=== PATIENT | male | born 1940 | race Caucasian/White ===

== ENCOUNTER 2017-07-06 15:27 | Emergency (ER) | payer OTHER ==
--- NOTE | 2017-07-06 16:16 | EDPHYS ---
Physician Documentation [facility] Name: Dameon Olivia Age: 76 yrs Sex: Male : 1940 Arrival Date: 07/06/2017 Time: 15:30 Bed 19 Private MD: ED Physician Cb Raymond HPI: 07/06 16:11 This 76 yrs old Male presents to ER via Ambulatory with complaints of fco POSSIBLE HERNIA. 16:11 The patient presents with abdominal pain. Onset: The symptoms/episode began/occurred 2 fco day(s) ago, 2 week(s) ago. The symptoms do not radiate. Associated signs and symptoms: none. The symptoms are described as crampy. Modifying factors: The symptoms are alleviated by remaining still, the symptoms are aggravated by movement. Severity of pain: At its worst the pain was mild in the emergency department the pain is unchanged. The patient has experienced similar episodes in the past, several times. Historical: - Allergies: 15:39 No Known Allergies; aj - Home Meds: 15:39 pantoprazole oral oral [Active]; atorvastatin 40 mg oral tab 1 tab once daily [Active]; aj Pradaxa 150 mg oral cap 1 cap 2 times per day [Active]; - PMHx: 15:39 Hypertension; Atrial Fib; aj - PSHx: 15:39 None; aj - Immunization history:: Adult Immunizations up to date. - Social history:: Smoking status: Patient/guardian denies using tobacco. - Family history:: not pertinent. ROS: 16:11 Constitutional: Negative for fever, chills, and weight loss, Eyes: Negative for injury, fco pain, redness, and discharge, ENT: Negative for injury, pain, and discharge, Neck: Negative for injury, pain, and swelling, Cardiovascular: Negative for chest pain, palpitations, and edema, Respiratory: Negative for shortness of breath, cough, wheezing, and pleuritic chest pain, Back: Negative for injury and pain, : Negative for injury, bleeding, discharge, and swelling, MS/Extremity: Negative for injury and deformity, Skin: Negative for injury, rash, and discoloration, Neuro: Negative for headache, weakness, numbness, tingling, and seizure, Psych: Negative for depression, anxiety, suicide ideation, homicidal ideation, and hallucinations, Allergy/Immunology: Negative for hives, rash, and allergies, Endocrine: Negative for neck swelling, polydipsia, polyuria, polyphagia, and marked weight changes, Hematologic/Lymphatic: Negative for swollen nodes, abnormal bleeding, and unusual bruising. 16:11 Abdomen/GI: Positive for abdominal pain, of the suprapubic area, right lower quadrant and left lower quadrant. Exam: 16:11 Constitutional: This is a well developed, well nourished patient who is awake, alert, fco and in no acute distress. Head/Face: Normocephalic, atraumatic. Eyes: Pupils equal round and reactive to light, extra-ocular motions intact. Lids and lashes normal. Conjunctiva and sclera are non-icteric and not injected. Cornea within normal limits. Periorbital areas with no swelling, redness, or edema. ENT: Nares patent. No nasal discharge, no septal abnormalities noted. Tympanic membranes are normal and external auditory canals are clear. Oropharynx with no redness, swelling, or masses, exudates, or evidence of obstruction, uvula midline. Mucous membranes moist. Neck: Trachea midline, no thyromegaly or masses palpated, and no cervical lymphadenopathy. Supple, full range of motion without nuchal rigidity, or vertebral point tenderness. No Meningismus. Chest/axilla: Normal chest wall appearance and motion. Nontender with no deformity. No lesions are appreciated. Cardiovascular: Regular rate and rhythm with a normal S1 and S2. No gallops, murmurs, or rubs. Normal PMI, no JVD. No pulse deficits. Respiratory: Lungs have equal breath sounds bilaterally, clear to auscultation and percussion. No rales, rhonchi or wheezes noted. No increased work of breathing, no retractions or nasal flaring. Back: No spinal tenderness. No costovertebral tenderness. Full range of motion. Male : Normal genitalia with no discharge or lesions. Skin: Warm, dry with normal turgor. Normal color with no rashes, no lesions, and no evidence of cellulitis. MS/ Extremity: Pulses equal, no cyanosis. Neurovascular intact. Full, normal range of motion. Neuro: Awake and alert, GCS 15, oriented to person, place, time, and situation. Cranial nerves II-XII grossly intact. Motor strength 5/5 in all extremities. Sensory grossly intact. Cerebellar exam normal. Normal gait. Psych: Awake, alert, with orientation to person, place and time. Behavior, mood, and affect are within normal limits. 16:11 Abdomen/GI: Inspection: abdomen appears normal, Bowel sounds: normal, Palpation: mild abdominal tenderness, in the suprapubic area, right lower quadrant and left lower quadrant. Vital Signs: 15:39 BP 149 / 90; Pulse 64; Resp 20; Temp 97.8; Pulse Ox 96% on R/A; Weight 97.98 kg; Height aj 6 ft. 0 in. (182.88 cm); Pain 9/10; 16:30 BP 144 / 87; Pulse 63; Resp 18; Pulse Ox 99% on R/A; rb1 15:39 Body Mass Index 29.29 (97.98 kg, 182.88 cm) MDM: 15:43 Patient medically screened. [facility] 16:11 Data reviewed: vital signs, nurses notes, lab test result(s), radiologic studies, CT [facility] scan. 07/06 16:06 Order name: Urine Culture [facility] 07/06 16:07 Order name: Urine Culture [facility] 07/06 16:06 Order name: Urine Dipstick-Ancillary (obtain specimen); Complete Time: 16:55 [facility] Administered Medications: No medications were administered Disposition: 07/06/17 16:16 Discharged to Home. Impression: Bilateral inguinal hernia, without obstruction or gangrene, not specified as recurrent, Obesity, unspecified, Atrial fibrillation and flutter. - Condition is Stable. - Discharge Instructions: Atrial Fibrillation, Hernia, Obesity, Inguinal Hernia, Adult, Atrial Fibrillation, [id number]. - Medication Reconciliation Form, Thank You Letter, Antibiotic Education, Prescription Opioid Use form. - Follow up: Quan Anderson MD; When: 2 - 3 days; Reason: Recheck today's complaints, Continuance of care, Re-evaluation by your physician. - Problem is new. - Symptoms have improved. Signatures: Dispatcher [employer] Tiffanie Ugarte, Cb Reza RN, MD MD cha Barber, Rebecca RN RN rb1 Corrections: (The following items were deleted from the chart) 16:46 16:16 07/06/2017 16:16 Discharged to Home. Impression: Bilateral inguinal hernia, rb1 without obstruction or gangrene, not specified as recurrent; Obesity, unspecified; Atrial fibrillation and flutter. Condition is Stable. Forms are Medication Reconciliation Form, Thank You Letter, Antibiotic Education, Prescription Opioid Use. Follow up: Dr. Quan Anderson; When: 2 - 3 days; Reason: Recheck today's complaints, Continuance of care, Re-evaluation by your physician. Problem is new. Symptoms have improved. fco
--- NOTE | 2017-07-06 16:16 | ER ---
Nurse's Notes [facility] Name: Dameon Olivia Age: 76 yrs Sex: Male : 1940 Arrival Date: 07/06/2017 Time: 15:30 Bed 19 Private MD: Diagnosis: Bilateral inguinal hernia, without obstruction or gangrene, not specified as recurrent;Obesity, unspecified;Atrial fibrillation and flutter Presentation: 07/06 15:33 Presenting complaint: Patient states: Right inguinal hernia that started 6 weeks ago. aj Patient reports he was sent by Dr Rosales to be evaluated. Patient seen by PCP for this complaint and had CT, found 2 small hernias. Transition of care: patient was not received from another setting of care. Onset of symptoms was May 28, 2017. Initial Sepsis Screen: Does the patient meet any 2 criteria? No. Patient's initial sepsis screen is negative. Does the patient have a suspected source of infection? No. Patient's initial sepsis screen is negative. Care prior to arrival: None. 15:33 Method Of Arrival: Ambulatory 15:33 Acuity: DEYVI 3 aj Triage Assessment: 15:39 General: Appears in no apparent distress. uncomfortable, Behavior is calm, cooperative, aj appropriate for age. Pain: Complains of pain in right femoral area Pain currently is 4 out of 10 on a pain scale. at worst was 10 out of 10 on a pain scale. Neuro: Level of Consciousness is awake, alert, obeys commands, Oriented to person, place, time, situation, Appropriate for age. Respiratory: Airway is patent Respiratory effort is even, unlabored, Respiratory pattern is regular, symmetrical. : Reports pain in right lower groin. Derm: Skin is intact, is healthy with good turgor, Skin is pink, warm \T\ dry. normal. Historical: - Allergies: 15:39 No Known Allergies; aj - Home Meds: 15:39 pantoprazole oral oral [Active]; atorvastatin 40 mg oral tab 1 tab once daily [Active]; aj Pradaxa 150 mg oral cap 1 cap 2 times per day [Active]; - PMHx: 15:39 Hypertension; Atrial Fib; aj - PSHx: 15:39 None; aj - Immunization history:: Adult Immunizations up to date. - Social history:: Smoking status: Patient/guardian denies using tobacco. - Family history:: not pertinent. Screenin:45 Abuse screen: Denies threats or abuse. Nutritional screening: No deficits noted. rb1 Tuberculosis screening: No symptoms or risk factors identified. Fall Risk None identified. Assessment: 15:45 General: Appears in no apparent distress. comfortable, Behavior is calm, cooperative. rb1 Pain: Complains of pain in right femoral area Pain currently is 10 out of 10 on a pain scale. Pain began x 6 weeks. Neuro: Level of Consciousness is awake, alert, obeys commands, Oriented to person, place, time, situation. Cardiovascular: Capillary refill < 3 seconds is brisk in bilateral fingers. Respiratory: Airway is patent Respiratory effort is even, unlabored, Respiratory pattern is regular, symmetrical. GI: No signs and/or symptoms were reported involving the gastrointestinal system. : No signs and/or symptoms were reported regarding the genitourinary system. Derm: Skin is pink, warm \T\ dry. Musculoskeletal: Range of motion: intact in all extremities. 16:30 Reassessment: Patient appears in no apparent distress at this time. No changes from rb1 previously documented assessment. discharge pending due to urine specimen collection. Vital Signs: 15:39 BP 149 / 90; Pulse 64; Resp 20; Temp 97.8; Pulse Ox 96% on R/A; Weight 97.98 kg; Height aj 6 ft. 0 in. (182.88 cm); Pain 9/10; 16:30 BP 144 / 87; Pulse 63; Resp 18; Pulse Ox 99% on R/A; rb1 15:39 Body Mass Index 29.29 (97.98 kg, 182.88 cm) ED Course: 15:30 Patient arrived in ED. sb2 15:36 Triage completed. aj 15:39 Arm band placed on left wrist. Patient placed in an exam room. aj 15:43 Cb Raymond MD is Attending Physician. fco 15:45 Patient has correct armband on for positive identification. Bed in low position. Call rb1 light in reach. Side rails up X 1. Pulse ox on. NIBP on. 15:47 Hazel Barbosa, SRIRAM is Primary Nurse. rb1 16:14 Quan Anderson MD is Referral Physician. fco 16:46 No provider procedures requiring assistance completed. Patient did not have IV access rb1 during this emergency room visit. 16:55 Urine Culture Sent. rb1 Administered Medications: No medications were administered Outcome: 16:16 Discharge ordered by . fco 16:46 Patient left the ED. rb1 16:46 Discharged to home ambulatory, with family. rb1 16:46 Condition: stable 16:46 Discharge instructions given to patient, Instructed on discharge instructions, follow up and referral plans. Demonstrated understanding of instructions, follow-up care, Prescriptions given X none Signatures: Tiffanie Gonzales, RN Cb Reza MD MD cha Barber, Rebecca RN RN rb1 Rosana Lara sb2
[2017-07-06 16:50] VITALS: BP 149/90; TEMP 97.8; O2SAT 96
== END 2017-07-06 16:46 | disposition home or self-care (01) ==
LOC: ER 15:27
DX: K40.20 Bilateral inguinal hernia, without obstruction or gangrene, not specified as recurrent (principal); E66.9 Obesity, unspecified; I48.91 Unspecified atrial fibrillation; I48.92 Unspecified atrial flutter; I10 Essential (primary) hypertension
CPT/HCPCS: 87086; 87088; 99283

== ENCOUNTER 2017-07-13 07:30 | Day surgery (SDC) | payer OTHER ==
[2017-07-12 13:36] LABS: Absolute Lymphocytes (CBC) 2.6 K/uL (0.7-4.9); Absolute Monocytes 0.8 K/uL (0.1-1.3); Absolute Neutrophil 4.7 K/uL (1.8-8.0); Basophils % 0.3 % (0-1.3); Eosinophils % 1.5 % (0-4.4); Hematocrit 39.8 % (39.6-49.0); Lymphocytes % 31.1 % (15.3-44.8); MCH 27.8 pg (27.0-35.0); MCV 84.4 fL (80-100); MPV 7.1 fL (7.6-11.3); Monocytes % 9.5 % (3.3-12.3); RBC Red Blood Cell Count 4.72 M/uL (4.33-5.43)
[2017-07-12 13:39] LABS: Potassium 4.5 mEq/L (3.6-5.0)
--- NOTE | 2017-07-12 13:48 | RAD REPORT ---
EXAM DESCRIPTION: Nirmal Victoria (2 Views)07/12/2017 1:36 pm CLINICAL HISTORY: Coronary artery disease/preop COMPARISON: March 2017 FINDINGS: The lungs appear clear of acute infiltrate. The heart is normal size IMPRESSION: No acute abnormalities displayed
--- NOTE | 2017-07-12 14:34 | EKG ---
Test Date: 2017-07-12 Test Time: 13:12:21 High Heel Builder: DEONNA MEASUREMENT RESULTS: Intervals: Rate: 60 ME: 176 QRSD: 108 QT: 414 QTc: 414 Chassell: P: -4 ME: 176 QRS: -46 T: 77 INTERPRETIVE STATEMENTS: Normal sinus rhythm Left anterior fascicular block Moderate voltage criteria for LVH, may be normal variant Abnormal ECG Compared to ECG 04/06/2017 08:51:45 Left ventricular hypertrophy now present Sinus bradycardia no longer present First degree AV block no longer present Electronically Signed On 07-12-17 14:34:04 CDT by Abel Orosco
[2017-07-13] MEDS ORDERED: CEFAZOLIN/SWI 1gm 1 GM/10 ML SYR ONE (07:58)
[2017-07-13] MEDS ORDERED: Ringers Lactate 1,000 ML IV ONE ×2 (07:58→10:52)
[2017-07-13] MEDS ORDERED: PROPOFOL 200 MG/20 ML VIAL IV ONE (08:42)
[2017-07-13] MEDS ORDERED: MIDAZOLAM HCL 2 MG/2 ML INJ ONE (08:42)
[2017-07-13] MEDS ORDERED: ROCURONIUM 50 MG/5 ML VIAL IV ONE (08:42)
[2017-07-13] MEDS ORDERED: FENTANYL CITR 100 MCG/2 ML ONE ×2 (08:43→10:24)
[2017-07-13] MEDS ORDERED: ONDANSETRON HCL 40 MG/20 ML VIAL ONE (08:43)
[2017-07-13] MEDS ORDERED: NEOSTIGMINE 1 MG/ML -5 ML SYRINGE ONE (10:45)
[2017-07-13] MEDS ORDERED: GLYCOPYRROLATE 0.2 MG/ML SYR ONE (10:45)
[2017-07-13] MEDS: MEPERIDINE HCL 50 MG/ML AMP ONE ×6 (11:15→11:45)
--- NOTE | 2017-07-13 11:26 | OP ---
Date of Procedure: 07/13/2017 Surgeon: Quan Anderson MD Insulation Board Coater Operator: MARIA DEL CARMEN Briscoe Preoperative Diagnosis: Bilateral inguinal hernia and right face skin cancer. Postoperative Diagnosis: Bilateral inguinal hernia and right face skin cancer. Procedure: Wide excision, right face mass with frozen section, 3 x 1 cm with layered closure and rep air of bilateral inguinal hernia. Estimated Blood Loss: Minimal. Specimen: Right face mass, margins free of cancer, and bilateral cord lipomas and hernia sacs. Findings: As above. Anesthesia: General. Complications: None. Disposition: The patient tolerated the procedure in stable condition and taken to the Recovery in go od general condition. Procedure In Detail: The patient was brought to the OR and placed in supine position. General anest hesia was begun. The patient was prepped and draped in usual sterile fashion. Marcaine 0.5% was inf iltrated locally. Then, 3 x 1 cm incision made on the right face just below the ear to excise this p revious scar where a shave biopsy was done with the basal cell carcinoma. This was sent to Pathology and frozen section revealed the margins were free. There was just scar tissue. There was no residu al carcinoma identified. Subsequently, flaps created and a 3-0 chromic used to approximate the subcu taneous tissue and close the skin. Sterile dressing was applied. Then, a 4 cm oblique incision made in the right groin between the anterior iliac superior spine and the pubic tubercle. Subcutaneous t issue was divided. Rob's fascia identified and divided. Aponeurosis was identified and mobilized inferiorly, exposed shelving edge, and then the aponeurosis opened through the external ring. Ilioi nguinal nerve identified and retracted out of the field of dissection. Cord mobilized and skeletoniz ed. A large cord lipoma and hernia sac identified. High ligation with 2-0 chromic for the cord lipo ma and 2-0 Prolene for the hernia sac done in the standard fashion, and both specimen excised and sen t to Pathology. Then, Marlex mesh plug placed in the internal ring and VersaTack stapler used to sec ure the mesh, and then onlay mesh placed on the inguinal floor, secured medially to the pubic tubercl e, inferiorly to the shelving edge, laterally to each other and superiorly to the conjoined tendon. Then, cord structure and ilioinguinal nerve were placed back in anatomic location. A 2-0 Prolene was used to close the aponeurosis, a 3-0 chromic used to close Rob's fascia, and angelo used to clos e the skin. Exact same operation took place on the left side, except there was a larger cord lipoma present and was a little bit more lateral than the usual location. There was no hernia sac defined a nd the exact same repair occurred. There were no complications. Subsequently, after both wounds wer e closed, a sterile dressing was applied. The patient was awakened and taken to Recovery in good gen eral condition. Discharge Note: The patient will go to Day Surgery and home when stable. Disposition: Home. Condition: Stable. Discharge Instructions: Resume home medications and diet. Activity as tolerated. No heavy lifting. Remove outer dressing in 2 days. Shower. Keep wound clean and dry. Follow up in my office in 1 w [place]. Call for appointment. Tylenol No. 3 one tablet p.o. q.4 p.r.n. pain. Ice pack. /MODL Voice ID: [id number] Report ID: [id number]
[2017-07-13] MEDS ORDERED: KETOROLAC 30 MG/ML INJ ONE (11:28)
[2017-07-13 12:38] VITALS: BP 174/65; TEMP 96.8; O2SAT 100
[2017-07-13] MEDS ORDERED: HYDROCODONE/APAP 7.5/325 MG TAB ONE (12:57)
== END 2017-07-13 13:15 | disposition home or self-care (01) ==
LOC: OR 07:30
PROVIDERS: ATTEND Surgery
PROC: 0YUA0JZ Supplement Bilateral Inguinal Region with Synthetic Substitute, Open Approach (ICD-10-PCS; 2017-07-13)
PROC: 0JQ10ZZ Repair Face Subcutaneous Tissue and Fascia, Open Approach (ICD-10-PCS; principal; 2017-07-13 09:00)
PROC: 0JB10ZZ Excision of Face Subcutaneous Tissue and Fascia, Open Approach (ICD-10-PCS; 2017-07-13 09:00)
DX: K40.20 Bilateral inguinal hernia, without obstruction or gangrene, not specified as recurrent (principal); C44.310 Basal cell carcinoma of skin of unspecified parts of face
CPT/HCPCS: 11643; 12052; 36415; 49505; 71046; 80048; 85025; 88302; 88305; 88331; 88332; 93005; J0690; J2175 ×2; J2250; J2405; J2710; J3010 ×2

== ENCOUNTER 2018-03-15 21:22 | Inpatient (IN) | payer OTHER ==
[2018-03-15 22:16] LABS: Protime INR 1.34
--- NOTE | 2018-03-15 22:34 | RAD REPORT ---
EXAM DESCRIPTION: RAD - Chest Single View - 03/15/2018 10:12 pm CLINICAL HISTORY: CHEST PAIN Chest pain. COMPARISON: Chest Pa And Lat (2 Views) dated 07/12/2017; Chest Single View dated 04/04/2017; Chest Sing le View dated 12/10/2015 FINDINGS: Portable technique limits examination quality. The lungs are grossly clear. The heart is normal in size. No displaced fractures. IMPRESSION: No acute intrathoracic process suspected.
[2018-03-15 22:41] LABS: Albumin 3.5 g/dL (3.4-5.0); Bilirubin Direct 0.3 mg/dL (0-0.2); Bilirubin Total 1.1 mg/dL (0.2-1.0); Magnesium 1.8 mg/dL (1.8-2.4); Potassium 3.6 mmol/L (3.5-5.1); Protein, Total 6.5 g/dL (6.4-8.2); Troponin (Emerg Dept Use Only) 0.03 ng/mL (0.0-0.045)
[2018-03-15] MEDS ORDERED: LABETALOL 20 MG/4ML SYRINGE IV ONE (23:13)
[2018-03-15] MEDS ORDERED: MORPHINE 4 MG/ML SYR IV PRN (23:44)
[2018-03-15] MEDS ORDERED: ACETAMINOPHEN 500 MG TAB PO PRN (23:44)
--- NOTE | 2018-03-16 00:10 | EDPHYS ---
Physician Documentation [facility] Name: Dameon Olivia Age: 77 yrs Sex: Male : 1940 Arrival Date: 03/15/2018 Time: 21:36 Bed 7 Private MD: ED Physician Ariel Grewal HPI: 03/16 00:00 This 77 yrs old Male presents to ER via EMS with complaints of Chest Pain. gs 00:00 The patient or guardian reports chest pain that is located primarily in the anterior gs chest wall. Onset: today. Associated signs and symptoms: Pertinent positives: palpitations. The chest pain is described as dull. Severity of pain: At its worst the pain was mild in the emergency department the pain has resolved. Historical: - Allergies: 03/15 21:20 No Known Allergies; cc3 - Home Meds: 21:20 atorvastatin 40 mg Oral tab 1 tab once daily [Active]; pantoprazole Oral [Active]; cc3 Pradaxa 150 mg Oral cap 1 cap 2 times per day [Active]; losartan oral oral [Active]; - PMHx: 21:20 Atrial Fib; Hypertension; cc3 - PSHx: 21:20 right knee replacement; stent; cc3 - Immunization history:: Adult Immunizations not up to date. - Social history:: Smoking status: unknown. - Ebola Screening: : No symptoms or risks identified at this time. ROS: 03/16 00:00 All other systems are negative. gs Exam: 00:00 Head/Face: Normocephalic, atraumatic. Eyes: Pupils equal round and reactive to light, gs extra-ocular motions intact. Lids and lashes normal. Conjunctiva and sclera are non-icteric and not injected. Cornea within normal limits. Periorbital areas with no swelling, redness, or edema. ENT: Nares patent. No nasal discharge, no septal abnormalities noted. Tympanic membranes are normal and external auditory canals are clear. Oropharynx with no redness, swelling, or masses, exudates, or evidence of obstruction, uvula midline. Mucous membranes moist. Neck: Trachea midline, no thyromegaly or masses palpated, and no cervical lymphadenopathy. Supple, full range of motion without nuchal rigidity, or vertebral point tenderness. No Meningismus. Chest/axilla: Normal chest wall appearance and motion. Nontender with no deformity. No lesions are appreciated. Respiratory: Lungs have equal breath sounds bilaterally, clear to auscultation and percussion. No rales, rhonchi or wheezes noted. No increased work of breathing, no retractions or nasal flaring. Abdomen/GI: Soft, non-tender, with normal bowel sounds. No distension or tympany. No guarding or rebound. No evidence of tenderness throughout. Back: No spinal tenderness. No costovertebral tenderness. Full range of motion. Skin: Warm, dry with normal turgor. Normal color with no rashes, no lesions, and no evidence of cellulitis. MS/ Extremity: Pulses equal, no cyanosis. Neurovascular intact. Full, normal range of motion. Neuro: Awake and alert, GCS 15, oriented to person, place, time, and situation. Cranial nerves II-XII grossly intact. Motor strength 5/5 in all extremities. Sensory grossly intact. Cerebellar exam normal. Normal gait. 00:00 Constitutional: The patient appears alert, awake. 00:00 Cardiovascular: Rate: tachycardic, Rhythm: irregularly irregular, Pulses: no pulse deficits are appreciated, Heart sounds: normal. 00:00 ECG was reviewed by the Attending Physician. Vital Signs: 03/15 21:20 BP 110 / 48; Pulse 123; Resp 16 S; Temp 98.3(O); Pulse Ox 97% on R/A; Weight 99.34 kg cc3 (R); Height 5 ft. 6 in. (167.64 cm) (R); Pain 3/10; 22:14 BP 118 / 54; Pulse 133; Resp 21; Pulse Ox 95% on R/A; Pain 3/10; ed1 22:36 BP 134 / 70; Pulse 146; Resp 21; Pulse Ox 97% on R/A; Pain 3/10; ed1 23:15 BP 99 / 65; Pulse 95; Resp 18; Pulse Ox 96% on R/A; Pain 3/10; ed1 23:47 BP 121 / 69; Pulse 115; Resp 20; Pulse Ox 97% on R/A; Pain 0/10; ed1 23:50 Pulse 121; ed1 03/16 01:01 BP 110 / 71; Pulse 98; Resp 18; Temp 97.8(O); Pulse Ox 97% on R/A; Pain 0/10; ed1 01:32 BP 103 / 52; Pulse 93; Resp 19; Pulse Ox 96% on R/A; Pain 0/10; ed1 03/15 21:20 Body Mass Index 35.35 (99.34 kg, 167.64 cm) cc3 MDM: 03/15 22:58 Patient medically screened. gs 03/16 00:00 Differential diagnosis: abnormal EKG, coronary artery disease chest wall pain, afib gs with rvr. Data reviewed: vital signs, nurses notes. 03/15 21:56 Order name: Basic Metabolic Panel; Complete Time: 22:59 lp1 03/15 21:56 Order name: CBC with Diff 1 03/15 21:56 Order name: LFT's; Complete Time: 22:59 [facility] 03/15 21:56 Order name: Magnesium; Complete Time: 22:59 1 03/15 21:56 Order name: NT PRO-BNP; Complete Time: 22:59 [facility] 03/15 21:56 Order name: PT-INR; Complete Time: 22:59 [facility] 03/15 21:56 Order name: Troponin (emerg Dept Use Only); Complete Time: 22:59 [facility] 03/15 21:56 Order name: XRAY Chest (1 view); Complete Time: 22:59 [facility] 03/15 23:49 Order name: Echo with Doppler [facility] 03/15 23:49 Order name: CBC with Automated Diff [facility] 03/15 23:49 Order name: Basic Metabolic Panel [facility] 03/15 23:49 Order name: Basic Metabolic Panel [facility] 03/15 23:49 Order name: Lipid Profile [facility] 03/15 23:49 Order name: Lipid Profile [facility] 03/15 21:56 Order name: EKG; Complete Time: 21:57 [facility] 03/15 21:56 Order name: Cardiac monitoring; Complete Time: 21:57 [facility] 03/15 21:56 Order name: EKG - Nurse/Tech; Complete Time: 21:58 [facility] 03/15 21:56 Order name: IV Saline Lock; Complete Time: 21:58 [facility] 03/15 21:56 Order name: Labs collected and sent; Complete Time: 21:58 [facility] 03/15 21:56 Order name: O2 Per Protocol; Complete Time: 21:58 [facility] 03/15 21:56 Order name: O2 Sat Monitoring; Complete Time: 21:58 lp1 03/15 23:49 Order name: CONS Physician Consult [facility] EC:00 Rate is 119 beats/min. Rhythm is regular. QRS interval is prolonged. T waves are gs Inverted in leads I, aVL. Clinical impression: Abnormal EKG without significant change and Atrial Fibrillation. Interpreted by me. Administered Medications: 03/15 23:15 Drug: Labetalol 10 mg {Note: Order clarified with Dr. Grewal, okay to give.} Route: IVP; ed1 Infused Over: 2 mins; Site: right antecubital; 23:50 Follow up: Pulse 121 bpm; Response: No adverse reaction ed1 03/16 00:17 Drug: Lopressor 50 mg Route: PO; ed1 01:04 Follow up: Response: No adverse reaction ed1 Disposition: 00:00 Critical Care:. gs Disposition: 03/16/18 00:08 Hospitalization ordered by Carissa Wills for Inpatient Admission. Preliminary diagnosis is Atrial fibrillation and flutter. - Bed requested for Telemetry/MedSurg (Inpatient). - Status is Inpatient Admission. ed1 - Condition is Stable. - Problem is new. - Symptoms have improved. UTI on Admission? No Critical care time excluding procedures: 00:00 Critical care time: Bedside Care: 10 minutes, Consultation: 10 minutes, Family gs Intervention: 10 minutes. Total time: 30 minutes Signatures: Dispatcher [employer] [facility] Court Cohen RN RN Evita Lewis RN RN ed1 Elena Akers RN RN 1 Ariel Grewal MD MD Renée Vasquez cc3 Corrections: (The following items were deleted from the chart) 00:14 00:08 Hospitalization Ordered by Carissa Wills MD for Inpatient Admission. Preliminary mw diagnosis is Atrial fibrillation and flutter. Bed requested for Telemetry/MedSurg (Inpatient). Status is Inpatient Admission. Condition is Stable. Problem is new. Symptoms have improved. UTI on Admission? No. gs 02:06 00:14 03/16/2018 00:08 Hospitalization Ordered by Carissa Wills MD for Inpatient ed1 Admission. Preliminary diagnosis is Atrial fibrillation and flutter. Bed requested for Telemetry/MedSurg (Inpatient). Status is Inpatient Admission. Condition is Stable. Problem is new. Symptoms have improved. UTI on Admission? No. mw
--- NOTE | 2018-03-16 00:10 | ER ---
Nurse's Notes [facility] Name: Dameon Olivia Age: 77 yrs Sex: Male : 1940 Arrival Date: 03/15/2018 Time: 21:36 Bed 7 Private MD: Diagnosis: Atrial fibrillation and flutter Presentation: 03/15 21:20 Presenting complaint: EMS states: substernal chest pain that started at around 2000H cc3 tonight, blood pressure was on the low side initially so no Aspirin nor Nitroglycerin was given as per the EMS. Transition of care: patient was not received from another setting of care. Onset of symptoms was March 15, 2018 at 20:00. Risk Assessment: Do you want to hurt yourself or someone else? Patient reports no desire to harm self or others. Initial Sepsis Screen: Does the patient meet any 2 criteria? No. Patient's initial sepsis screen is negative. Does the patient have a suspected source of infection? No. Patient's initial sepsis screen is negative. Care prior to arrival: Medication(s) given: zofran 4 mg. 21:20 Method Of Arrival: EMS: [facility] cc3 21:20 Acuity: DEYVI 3 cc3 Historical: - Allergies: 21:20 No Known Allergies; cc3 - Home Meds: 21:20 atorvastatin 40 mg Oral tab 1 tab once daily [Active]; pantoprazole Oral [Active]; cc3 Pradaxa 150 mg Oral cap 1 cap 2 times per day [Active]; losartan oral oral [Active]; - PMHx: 21:20 Atrial Fib; Hypertension; cc3 - PSHx: 21:20 right knee replacement; stent; cc3 - Immunization history:: Adult Immunizations not up to date. - Social history:: Smoking status: unknown. - Ebola Screening: : No symptoms or risks identified at this time. Screenin:16 Abuse screen: Denies threats or abuse. Denies injuries from another. Nutritional ed1 screening: No deficits noted. Tuberculosis screening: No symptoms or risk factors identified. Fall Risk None identified. Assessment: 22:14 General: Appears uncomfortable, Behavior is calm, cooperative. Pain: Complains of pain ed1 in chest Pain does not radiate. Pain currently is 3 out of 10 on a pain scale. Quality of pain is described as aching, Pain began 2 hours ago. Is continuous. Neuro: Level of Consciousness is awake, alert, obeys commands, Oriented to person, place, time, situation. Cardiovascular: Reports chest pain, Denies diaphoresis, fatigue, lightheadedness, nausea, shortness of breath, Heart tones S1 S2 present Capillary refill < 3 seconds in bilateral fingers Patient's skin is warm and dry. Rhythm is irregular. Respiratory: Airway is patent Respiratory effort is even, unlabored, Respiratory pattern is regular, symmetrical, Breath sounds are clear bilaterally. Denies cough, shortness of breath. GI: Abdomen is non-distended, Bowel sounds present X 4 quads. Abd is soft and non tender X 4 quads. Patient currently denies diarrhea, nausea, vomiting. : No signs and/or symptoms were reported regarding the genitourinary system. EENT: No signs and/or symptoms were reported regarding the EENT system. Derm: Skin is intact, is healthy with good turgor, Skin is dry, Skin is normal, Skin temperature is warm. Musculoskeletal: Circulation, motion, and sensation intact. Capillary refill < 3 seconds, in bilateral fingers. Range of motion: intact in all extremities. 22:36 Reassessment: Patient appears in no apparent distress at this time. No changes from ed1 previously documented assessment. Patient and/or family updated on plan of care and expected duration. Pain level reassessed. Patient is alert, oriented x 3, equal unlabored respirations, skin warm/dry/pink. Patient states symptoms have not improved. 23:15 Reassessment: Patient appears in no apparent distress at this time. No changes from ed1 previously documented assessment. Patient and/or family updated on plan of care and expected duration. Pain level reassessed. Patient is alert, oriented x 3, equal unlabored respirations, skin warm/dry/pink. Patient states symptoms have not improved. 03/16 01:01 Reassessment: Patient appears in no apparent distress at this time. No changes from ed1 previously documented assessment. Patient and/or family updated on plan of care and expected duration. Pain level reassessed. Patient is alert, oriented x 3, equal unlabored respirations, skin warm/dry/pink. Patient denies pain at this time. Patient states feeling better. Patient states symptoms have improved. 01:03 Reassessment: Attempt to call report to 4th floor. Nurse will call back in 15 minutes. ed1 01:32 Reassessment: Patient appears in no apparent distress at this time. No changes from ed1 previously documented assessment. Patient and/or family updated on plan of care and expected duration. Pain level reassessed. Patient is alert, oriented x 3, equal unlabored respirations, skin warm/dry/pink. Vital Signs: 03/15 21:20 BP 110 / 48; Pulse 123; Resp 16 S; Temp 98.3(O); Pulse Ox 97% on R/A; Weight 99.34 kg cc3 (R); Height 5 ft. 6 in. (167.64 cm) (R); Pain 3/10; 22:14 BP 118 / 54; Pulse 133; Resp 21; Pulse Ox 95% on R/A; Pain 3/10; ed1 22:36 BP 134 / 70; Pulse 146; Resp 21; Pulse Ox 97% on R/A; Pain 3/10; ed1 23:15 BP 99 / 65; Pulse 95; Resp 18; Pulse Ox 96% on R/A; Pain 3/10; ed1 23:47 BP 121 / 69; Pulse 115; Resp 20; Pulse Ox 97% on R/A; Pain 0/10; ed1 23:50 Pulse 121; ed1 01/18 01:01 BP 110 / 71; Pulse 98; Resp 18; Temp 97.8(O); Pulse Ox 97% on R/A; Pain 0/10; ed1 01:32 BP 103 / 52; Pulse 93; Resp 19; Pulse Ox 96% on R/A; Pain 0/10; ed1 /17 21:20 Body Mass Index 35.35 (99.34 kg, 167.64 cm) cc3 ED Course: 03/15 21:30 Inserted saline lock: 18 gauge in left antecubital area, using aseptic technique. By lp1 Sheryl Betancourt RN. 21:35 Inserted saline lock: 20 gauge in right antecubital area, using aseptic technique. lp1 Blood collected. 21:36 Patient arrived in ED. ds1 21:42 Triage completed. cc3 21:57 Cardiac pain workup initiated per nursing protocol. lp1 22:10 XRAY Chest (1 view) In Process Unspecified. EDMS 22:14 Evita Lewis, RN is Primary Nurse. ed1 22:14 Arm band placed on right wrist. lp1 22:16 Awaiting ED provider evaluation. ed1 22:16 Patient maintains SpO2 saturation greater than 95% on room air. ed1 22:16 Patient has correct armband on for positive identification. Placed in gown. Bed in low ed1 position. Call light in reach. Side rails up X2. Adult w/ patient. pouako kura [place] maori on. Pulse ox on. NIBP on. Warm blanket given. 22:27 Ariel Grewal MD is Attending Physician. gs 22:36 Awaiting ED provider evaluation. ed1 03/16 00:07 Carissa Wills MD is Hospitalizing Provider. gs 01:01 No provider procedures requiring assistance completed. Patient admitted, IV remains in ed1 place. intact, No redness/swelling at site. Administered Medications: 03/15 23:15 Drug: Labetalol 10 mg {Note: Order clarified with dorothy Carrillo to give.} Route: IVP; ed1 Infused Over: 2 mins; Site: right antecubital; 23:50 Follow up: Pulse 121 bpm; Response: No adverse reaction ed1 03/16 00:17 Drug: Lopressor 50 mg Route: PO; ed1 01:04 Follow up: Response: No adverse reaction ed1 Outcome: 00:08 Decision to Hospitalize by Provider. 01:55 Admitted to Tele accompanied by tech, family with patient, via wheelchair, room 403., lp1 with chart, Report called to SRIRAM Marroquin 01:55 Condition: stable 01:55 Discharge instructions given to patient, family, Instructed on the need for admit, Demonstrated understanding of instructions. 02:06 Patient left the ED. ed1 Signatures: Dispatcher [employer] [facility] Maria R Mejia 1 Evita Lewis RN RN ed1 Elena Akers RN RN lp1 Ariel Grewal MD MD Renée Vasquez cc3 Corrections: (The following items were deleted from the chart) 03/15 22:39 22:36 BP 140 / 116; Pulse 146bpm; Resp 21bpm; Pulse Ox 97% RA; Pain 3/10; ed1 ed1
[2018-03-16] MEDS: METOPROLOL TAR 50 MG TAB PO SCH ×3 (00:30→21:43)
[2018-03-16 02:22] VITALS: BMI 29.7
[2018-03-16 03:26] VITALS: O2SAT 96
[2018-03-16 06:38] LABS: Potassium 4.3 mmol/L (3.5-5.1)
[2018-03-16] MEDS ORDERED: PNEUMOCOCCAL VACCINE 0.5 ML IMVAC ONE (08:00)
[2018-03-16] MEDS ORDERED: INFLUENZA VACCINE (for 3y+) 0.5 ML DOSE IMVAC ONE (08:00)
[2018-03-16] MEDS ORDERED: ENOXAPARIN 40 MG/0.4 ML SQ SCH (09:00)
[2018-03-16] MEDS: DABIGATRAN 150 MG CAP PO SCH ×2 (11:18→21:46)
[2018-03-16] MEDS: ASPIRIN EC 81 MG TAB PO SCH (11:18)
[2018-03-16] MEDS: LOSARTAN POTASSIUM 50 MG TABLET PO SCH (11:18)
[2018-03-16] MEDS: PANTOPRAZOLE 40MG TABLET PO SCH (11:19)
[2018-03-16] MEDS: SOTALOL HCL 80 MG TAB PO SCH ×2 (12:31→19:00)
--- NOTE | 2018-03-16 12:32 | P.HP ---
Certification for Inpatient Patient admitted to: Inpatient With expected LOS: >2 Midnights Patient will require the following post-hospital care: None Practitioner: I am a practitioner with admitting privileges, knowledge of patient current condition, hospital course, and medical plan of care. Services: Services provided to patient in accordance with Admission requirements found in Title 42 Section 412.3 of the Code of Federal Regulations Patient History Date of Service: 03/15/18 Reason for admission: Atrial fibrillation with rapid ventricular response History of Present Illness: Patient is a 77-year-old gentleman who came into the hospital with palpitations. Patient has history of atrial fibrillation. Patient has been cardioverted on his last admission about a year ago. He has similar complaints. He had been on sotalol and Xarelto; however, because he was unable to afford those medicines these were switched. He has not taken anything for his rhythm but he is on Pradaxa. Patient started having the palpitations once again and his heart rate in the ER was in the 160s. The ER physician stated that his plan was to do a cardioversion; however, patient refused to have the cardioversion performed. Patient was given multiple doses of propanolol in the ER and his heart rate is down into the 90s. Patient will be admitted to the hospital for further evaluation. Cardiology will be consulted as well. Allergies No Known Allergies Allergy (Verified 03/16/18 02:14) Home Medications: Atorvastatin Calcium 40 mg PO BEDTIME 03/16/18 Dabigatran Etexilate Mesylate [Pradaxa*] 150 mg PO BID 03/16/18 Losartan Potassium 100 mg PO DAILY 03/16/18 Pantoprazole [Protonix Tab] 40 mg PO DAILY 03/16/18 - Past Medical/Surgical History Has patient received pneumonia vaccine in the past: No Diabetic: No -: HTN -: CAD -: Afib -: High Cholesterol -: heart stents x2 -: right knee replacement -: Cardioversion - Family History Sister Medical History: Diabetes Father Medical History: Lung disease, Cancer Notes: COPD Mother Medical History: Cancer - Social History Smoking Status: Former smoker Alcohol use: Yes CD- Drugs: No Caffeine use: Yes Place of Residence: Home Review of Systems 10-point ROS is otherwise unremarkable Physical Examination - Vital Signs Temperature: 97.8 F Blood Pressure: 118/56 Pulse: 65 Respirations: 18 Pulse Ox (%): 98 - Physical Exam General: Alert, In no apparent distress, Oriented x3 HEENT: Atraumatic, PERRLA, Mucous membr. moist/pink, EOMI, Sclerae nonicteric Neck: Supple, 2+ carotid pulse no bruit, No LAD, Without JVD or thyroid abnormality Respiratory: Clear to auscultation bilaterally, Normal air movement Cardiovascular: Irregular heart rate/rhythm, Systolic murmur Gastrointestinal: Normal bowel sounds, Soft and benign, Non-distended, No tenderness Musculoskeletal: No clubbing, No tenderness, Swelling Integumentary: No rashes Neurological: Normal gait, Normal speech, Normal strength at 5/5 x4 extr, Normal tone, Sensation intact, Cranial nerves 3-12 intact, Normal affect Lymphatics: No axilla or inguinal lymphadenopathy - Studies Laboratory Data (last 24 hrs) 03/15/18 21:35: Triglycerides 68, Cholesterol 142, HDL Cholesterol 71 H, Cholesterol/HDL Ratio 2.00 03/15/18 21:35: PT 15.9 H, INR 1.34 03/15/18 21:35: WBC 8.0, Hgb DESIGN RELEASE ENGINEER, Hct DESIGN RELEASE ENGINEER, Plt Count DESIGN RELEASE ENGINEER 03/15/18 21:35: Sodium 141, Potassium 3.6, BUN 21 H, Creatinine 1.03, Glucose 92 , Magnesium 1.8, Total Bilirubin 1.1 H, AST 22, ALT 29, Alkaline Phosphatase 26 L Assessment & Plan - Problems (Diagnosis) (1) Atrial fibrillation with RVR Onset Date: 04/05/17 Current Visit: No Status: Acute (2) Palpitations Current Visit: No Status: Acute (3) CAD (coronary artery disease) Onset Date: 04/05/17 Current Visit: No Status: Chronic Qualifiers: (4) GERD (gastroesophageal reflux disease) Current Visit: No Status: Chronic Qualifiers: (5) HTN (hypertension) Onset Date: 04/05/17 Current Visit: No Status: Chronic Qualifiers: (6) Hyperlipidemia Current Visit: No Status: Chronic Qualifiers: - Plan 1. Will continue medications for rate control and anticoagulation 2. Continue with strict blood pressure control 3. Echocardiogram 4. Cardiology consultation 5. Repeat chest x-ray 6. GI and DVT prophylaxis - Advance Directives Does patient have a Living Will: No Does patient have a Durable POA for Healthcare: No - Code Status/Comfort Care Code Status Assessed: Yes Code Status: Full Code Critical Care: No Time Spent Managing PTS Care (In Minutes): 50
--- NOTE | 2018-03-16 13:00 | P.PN ---
Subjective Date of Service: 03/16/18 Chief Complaint: Atrial fibrillation with rapid ventricular response Patient seen and examined at bedside with RN chart reviewed. Case discussed with cardiology at this time. Patient is currently rate controlled however still is in atrial fibrillation. Patient started on Betapace. Review of Systems 10-point ROS is otherwise unremarkable Physical Examination - Vital Signs Temperature: 97.8 F Blood Pressure: 118/56 Pulse: 65 Respirations: 18 Pulse Ox (%): 98 - Physical Exam General: Alert, In no apparent distress HEENT: Atraumatic, PERRLA, EOMI Neck: Supple, JVD not distended Respiratory: Clear to auscultation bilaterally, Normal air movement Cardiovascular: Normal S1 S2, Irregular heart rate/rhythm Gastrointestinal: Normal bowel sounds, No tenderness Musculoskeletal: No tenderness Integumentary: No rashes Neurological: Normal speech, Normal tone, Normal affect Lymphatics: No axilla or inguinal lymphadenopathy - Studies Laboratory Data (last 24 hrs) 03/15/18 21:35: Triglycerides 68, Cholesterol 142, HDL Cholesterol 71 H, Cholesterol/HDL Ratio 2.00 03/15/18 21:35: PT 15.9 H, INR 1.34 03/15/18 21:35: WBC 8.0, Hgb CLINICAL DOCUMENTATION NURSE, Hct CLINICAL DOCUMENTATION NURSE, Plt Count CLINICAL DOCUMENTATION NURSE 03/15/18 21:35: Sodium 141, Potassium 3.6, BUN 21 H, Creatinine 1.03, Glucose 92 , Magnesium 1.8, Total Bilirubin 1.1 H, AST 22, ALT 29, Alkaline Phosphatase 26 L Medications List Reviewed: Yes Assessment And Plan - Current Problems (Diagnosis) (1) Atrial fibrillation with RVR Onset Date: 04/05/17 Current Visit: No Status: Acute Plan: Patient with chronic atrial fibrillation with RVR. Has been cardioverted in the past. Was started on IV rate control medication in the ER and heart rate controlled after that. Still remains in atrial fibrillation now. Cardiology consulted at this time appreciate recommendation Patient started on Betapace Continued on Pradaxa for anti coagulation (2) CAD (coronary artery disease) Onset Date: 04/05/17 Current Visit: No Status: Chronic Qualifiers: Coronary Disease-Associated Artery/Lesion type: [place] artery [place] vs. transplanted heart: [place] heart Associated angina: without angina Qualified Code(s): I25.10 - Atherosclerotic heart disease of [place] coronary artery without angina pectoris (3) GERD (gastroesophageal reflux disease) Current Visit: No Status: Chronic Qualifiers: Esophagitis presence: without esophagitis Qualified Code(s): K21.9 - Gastro -esophageal reflux disease without esophagitis (4) HTN (hypertension) Onset Date: 04/05/17 Current Visit: No Status: Chronic Qualifiers: Hypertension type: essential hypertension (5) Hyperlipidemia Current Visit: No Status: Chronic Qualifiers: Hyperlipidemia type: mixed hyperlipidemia Qualified Code(s): E78.2 - Mixed hyperlipidemia - Plan Pending clinical improvement at this time. Patient will need to use received 3 doses of Betapace here in the hospital and can be discharged home safely after that to continue taking Betapace at home. No complaints to offer overnight. Discharge Plan: Home Plan to discharge in: 48 Hours - Code Status/Comfort Care Code Status Assessed: Yes Critical Care: No
--- NOTE | 2018-03-16 14:02 | EKG ---
Test Date: 2018-03-15 Test Time: 21:20:50 Brim Molder: MEASUREMENT RESULTS: Intervals: Rate: 119 IA: QRSD: 110 QT: 340 QTc: 478 Gracey: P: IA: QRS: -57 T: 93 INTERPRETIVE STATEMENTS: Atrial fibrillation with rapid ventricular response Left anterior fascicular block Moderate voltage criteria for LVH, may be normal variant ST & T wave abnormality, consider lateral ischemia Abnormal ECG Compared to ECG 07/12/2017 13:12:21 ST (T wave) deviation now present Possible ischemia now present Sinus rhythm no longer present Electronically Signed On 03-16-18 13:58:53 MANAGER AGRICULTURAL by Tej Mcadams
--- NOTE | 2018-03-16 14:44 | ECHO ---
HEIGHT: 5 ft 6 in WEIGHT: 219 lb 0 oz DATE OF STUDY: 03/16/[address]: Carissa Wills MD 2-DIMENSIONAL: YES M.MODE: YES DOPPLER: YES COLOR FLOW: YES TDS: YES PORTABLE: DEFINITY: BUBBLE STUDY: DIAGNOSIS: TACHYCARDIA CARDIAC HISTORY: CATHERIZATION: YES SURGERY: NO PROSTHETIC VALVE: NO PACEMAKER: NO MEASUREMENTS (cm) DIASTOLIC (NORMALS) SYSTOLIC (NORMALS) IVSd 1.3 (0.6-1.2) LA Diam 4.5 (1.9-4.0) LVEF 61% LVIDd 5.4 (3.5-5.7) LVIDs 3.6 (2.0-3.5) %FS 33% LVPWd 1.3 (0.6-1.2) Ao Diam 3.0 (2.0-3.7) 2 DIMENSIONAL ASSESSMENT: RIGHT ATRIUM: NORMAL LEFT ATRIUM: DILATED RIGHT VENTRICLE: NORMAL LEFT VENTRICLE: NORMAL TRICUSPID VALVE: NORMAL MITRAL VALVE: NORMAL PULMONIC VALVE: NORMAL AORTIC VALVE: SLCEROSIS PERICARDIAL EFFUSION: NONE AORTIC ROOT: NORMAL LEFT VENTRICULAR WALL MOTION: NORMAL DOPPLER/COLOR FLOW: COMMENTS: LEFT ATRIUM DILATED. NORMAL LEFT VENTRICULAR SIZE AND FUNCTION. AORTIC SCLEROSIS. NO WALL MOTION ABNORMALITY. NO THROMBUS. TECHNOLOGIST: MAIA NAVARRO
[2018-03-16] MEDS ORDERED: ATORVASTATIN 40 MG TAB PO SCH (21:00)
--- NOTE | 2018-03-16 23:41 | CON ---
Date of Consultation: 03/16/2018 The patient is admitted to Dr. Wills's service on 03/15/2018. Reason For Consultation: Atrial fibrillation. History Of Present Illness: Mr. Olivia is a 77-year-old white male. We have met him before critical access hospital a year ago. He has a history of hypertension, dyslipidemia, coronary artery disease, status pos t stent approximately 2 years ago. He has a history of gastroesophageal reflux disease. In March of 2017, he underwent a cardioversion successfully by Dr. Orosco. Postoperatively, he has been on P radaxa, losartan, Protonix, and Lipitor. He has never been treated with antiarrhythmics. He comes i n with rapid atrial fibrillation and chest pain. His BNP was 709. Otherwise, the rest of the blood work was negative. His EKG showed atrial fibrillation. Chest x-ray is negative. He is asymptomatic now. Past Medical History: As stated above. Allergies: NONE. Review of Systems: Negative. Social History: Negative for tobacco, drugs, or alcohol. Family History: Positive for coronary artery disease and hypertension. Allergies: NONE. Medications: Were listed earlier. Physical Examination: General: He is very pleasant, in no acute distress. Vital Signs: Stable. Atrial fibrillation rate of 120. HEENT: Exam is negative. Neck: Supple without any bruit, lymphadenopathy, JVD, or thyromegaly. Chest: Clear to auscultation and percussion. Cardiac: Exam revealed atrial fibrillation. No murmurs, gallops, or rubs. Abdomen: Benign. Extremities: Revealed no clubbing, cyanosis, or edema. Neurologic: He is intact. Skin: Dry and intact. Pulses were present bilaterally. Diagnostic Data: As stated earlier. Impression And Plan: 1.Recurrent atrial fibrillation. We will continue Pradaxa. We will start him on Betapace 80 mg b.i .d. If he does not convert after 3 dosages, I could probably set him up for a cardioversion early ne xt week. This certainly can be can be done as an outpatient. 2.Dyslipidemia. We will continue Lipitor. 3.Gastroesophageal reflux disease. We will continue Protonix. 4.Hypertension, on losartan. 5.History of coronary artery disease, status post percutaneous coronary intervention. Recent stress test that is negative. We will continue present medical regimen. Case was discussed in detail with the patient and his family. I will continue to follow him in the ospital. ISABELLA/YAHIR Voice ID: [id number] Report ID: [id number]
[2018-03-17] MEDS: SOTALOL HCL 80 MG TAB PO SCH (06:30)
[2018-03-17] MEDS: PANTOPRAZOLE 40MG TABLET PO SCH (09:50)
[2018-03-17] MEDS: LOSARTAN POTASSIUM 50 MG TABLET PO SCH (09:51)
[2018-03-17] MEDS: ASPIRIN EC 81 MG TAB PO SCH (09:51)
[2018-03-17] MEDS: DABIGATRAN 150 MG CAP PO SCH (09:51)
[2018-03-17 12:53] VITALS: BP 130/60; TEMP 97
--- NOTE | 2018-03-17 12:55 | P.DS ---
Admission Date: 03/15/18 Discharge Date: 03/17/18 Primary Care Provider: Dr. Hung; Cardiology-Dr. Orosco Disposition: ROUTINE DISCHARGE Discharge Condition: GOOD Reason for Admission: Atrial fibrillation with rapid ventricular response Consultations: Cardiology-Dr. Mcadams Procedures: ECHO: Ejection fraction 61% LEFT VENTRICULAR WALL MOTION: NORMAL DOPPLER/COLOR FLOW: COMMENTS: LEFT ATRIUM DILATED. NORMAL LEFT VENTRICULAR SIZE AND FUNCTION. AORTIC SCLEROSIS. NO WALL MOTION ABNORMALITY. NO THROMBUS. Medical Problem List: Atrial fibrillation with RVR now sinus rhythm CAD GERD Hypertension Hyperlipidemia Brief History of Present Illness: 77-year-old male presented to the emergency room with atrial fibrillation with RVR. Patient has history of hypertension, hyperlipidemia and CAD. Patient was admitted for treatment. Cardiology consulted. Hospital Course: Patient presented with atrial fibrillation with RVR. Patient with history of CAD, hypertension and hyperlipidemia. Patient was initially placed on metoprolol. Medications were adjusted by Cardiology. Patient now on Betapace. Patient now sinus rhythm on medication. At discharge patient will continue with Betapace 80 mg 1 pill twice daily and Pradaxa 150 mg twice daily. Patient will follow up with cardiology in 1 week to further address. Patient with CAD. Patient stable at this time. Patient with history of hypertension. Patient will continue with medications-losartan 100 mg daily. Recommendation to maintain blood pressures less 150/80. Further adjustment can be done by his PCP. Patient has GERD. Patient will continue with medication-Protonix 40 mg daily. Patient has hyperlipidemia. Patient will continue with medication-Lipitor 40 mg daily. Vital Signs/Physical Exam: Temp Pulse Resp BP Pulse Ox 97.7 F 50 18 139/71 96 03/17/18 08:00 03/17/18 08:00 03/17/18 08:00 03/17/18 08:00 03/17/18 08:00 General: Alert, In no apparent distress, Oriented x3, Cooperative HEENT: Atraumatic Neck: Supple Respiratory: Clear to auscultation bilaterally, Normal air movement Cardiovascular: Normal pulses, Regular rate/rhythm Gastrointestinal: Normal bowel sounds, Soft and benign, Non-distended, No tenderness, No masses, No rebound, No guarding Musculoskeletal: No erythema, No tenderness, No warmth Integumentary: No tenderness/swelling, No erythema, No warmth, No cyanosis Neurological: Normal speech, Normal strength at 5/5 x4 extr, Normal tone, Normal affect Laboratory Data at Discharge: WBC Cancelled 03/15/18 Unknown Hgb Cancelled 03/15/18 Unknown Hct Cancelled 03/15/18 Unknown Plt Count Cancelled 03/15/18 Unknown PT 15.9 SECONDS (9.5-12.5) H 03/15/18 21:35 INR 1.34 03/15/18 21:35 Sodium 140 mmol/L (136-145) 03/16/18 05:31 Potassium 4.3 mmol/L (3.5-5.1) 03/16/18 05:31 BUN 23 mg/dL (7-18) H 03/16/18 05:31 Creatinine 1.08 mg/dL (0.55-1.3) 03/16/18 05:31 Glucose 99 mg/dL (74-106) 03/16/18 05:31 Magnesium 1.8 mg/dL (1.8-2.4) 03/15/18 21:35 Total Bilirubin 1.1 mg/dL (0.2-1.0) H 03/15/18 21:35 AST 22 U/L (15-37) 03/15/18 21:35 ALT 29 U/L (12-78) 03/15/18 21:35 Alkaline Phosphatase 26 U/L (45-117) L 03/15/18 21:35 Triglycerides 68 mg/dL (<150) 03/15/18 21:35 Cholesterol 142 mg/dL (<200) 03/15/18 21:35 HDL Cholesterol 71 mg/dL (40-60) H 03/15/18 21:35 Cholesterol/HDL Ratio 2.00 03/15/18 21:35 Home Medications: Atorvastatin Calcium 40 mg PO BEDTIME 03/16/18 Dabigatran Etexilate Mesylate [Pradaxa*] 150 mg PO BID 03/16/18 Losartan Potassium 100 mg PO DAILY 03/16/18 Pantoprazole [Protonix Tab*] 40 mg PO DAILY 03/16/18 Sotalol HCl [Betapace*] 80 mg PO BID 6AM 6PM #60 tab 03/17/18 New Medications: Sotalol HCl [Betapace*] 80 mg PO BID 6AM 6PM #60 tab Patient Discharge Instructions: 1. Patient will need to follow up with his PCP in 1 week to follow up this hospitalization. 2. Patient presented with atrial fibrillation with RVR. Patient with history of CAD, hypertension and hyperlipidemia. Patient was initially placed on metoprolol. Medications were adjusted by Cardiology. Patient now on Betapace. Patient now sinus rhythm on medication. At discharge patient will continue with Betapace 80 mg 1 pill twice daily and Pradaxa 150 mg twice daily. Patient will follow up with cardiology in 1 week to further address. 3. Patient with CAD. Patient stable at this time. Patient with history of hypertension. Patient will continue with medications-losartan 100 mg daily. Recommendation to maintain blood pressures less 150/80. Further adjustment can be done by his PCP. 4. Patient has GERD. Patient will continue with medication-Protonix 40 mg daily. 5. Patient has hyperlipidemia. Patient will continue with medication-Lipitor 40 mg daily. Diet: AHA Activity: Ad emeli Time spent managing pt's care (in minutes): 55
--- NOTE | 2018-03-19 00:28 | PN ---
Date of Progress Note: 03/17/2018 Mr. Olivia is a patient of ours. Dr. Orosco has seen him and did a cardioversion on him about a year ago. He has done well until 2 days ago. He came in with atrial fibrillation, rapid ventricular resp onse. An 80 mg twice a day sotalol was started. He received 3 dosages this morning. He is in adi l sinus rhythm. I think he needs to go home on his home medications plus sotalol as well as Pradaxa which he has been taking before and we will see him in the office in the near future. ISABELLA/YAHIR Voice ID: [id number] Report ID: [id number]
--- NOTE | 2018-03-20 13:27 | EKG ---
Test Date: 2018-03-16 Test Time: 19:56:00 Advanced Practice Nurse Psychotherapist: RT-O MEASUREMENT RESULTS: Intervals: Rate: 53 NH: 216 QRSD: 114 QT: 434 QTc: 407 [place]: P: 57 NH: 216 QRS: -52 T: 113 INTERPRETIVE STATEMENTS: Sinus bradycardia with 1st degree AV block Incomplete right bundle branch block Left anterior fascicular block Moderate voltage criteria for LVH, may be normal variant Cannot rule out Septal infarct, age undetermined T wave abnormality, consider lateral ischemia Abnormal ECG Compared to ECG 03/15/2018 21:20:50 First degree AV block now present Incomplete right bundle-branch block now present Myocardial infarct finding now present T-wave abnormality now present Atrial fibrillation no longer present ST (T wave) deviation no longer present Possible ischemia still present Electronically Signed On 03-20-18 13:24:16 [employer] INCIDENT RESPONDER by Tej Mcadams
== END 2018-03-17 15:15 | disposition home or self-care (01) | DRG 310 ==
LOC: ER 21:22 → ERHOLD 23:54 → 4TH 03-16 01:57
PROVIDERS: ADMIT Hospitalist; ATTEND Family Medicine
DX: I48.2 Chronic atrial fibrillation (principal); I25.10 Atherosclerotic heart disease of native coronary artery without angina pectoris; K21.9 Gastro-esophageal reflux disease without esophagitis; I10 Essential (primary) hypertension; Z95.5 Presence of coronary angioplasty implant and graft; Z96.651 Presence of right artificial knee joint; Z79.01 Long term (current) use of anticoagulants; E78.2 Mixed hyperlipidemia
CPT/HCPCS: 36415; 71045; 80048; 80061; 80076; 83735; 83880; 84484; 85025; 85610; 93005; 93306

== ENCOUNTER 2018-06-08 22:46 | Emergency (ER) | payer OTHER ==
--- OUTSIDE RECORDS SUMMARY | 2018-06-08 22:48 | XMS REPORT ---
:1940 [facility] Address [address] [place] [address] Care Team Providers Name Role Phone Unavailable Unavailable Unavailable Problems This patient has no known problems. Allergies, Adverse Reactions, Alerts This patient has no known allergies or adverse reactions. Medications This patient has no known medications. Results Test Description Test Time Test Comments Text Results Atomic Results Result Comments RAD, CHEST, 2 2018-05-28 10:40:00 Reason for FINAL REPORT PATIENT ID: VIEWS Exam:->[id number], [id number], [id number] TECHNIQUE: I25.10, I10 Frontal and lateral views of the chest. INDICATION: 77-year-old man with atrial fibrillation, coronary artery disease, and hypertension. COMPARISON: None. FINDINGS: LINES/TUBES: None. LUNGS: The lungs are well inflated and clear. Symmetric nipple shadows project over both lung bases. PLEURA: No pleural effusion or pneumothorax. HEART AND MEDIASTINUM: The cardiomediastinal silhouette is within normal limits. Atherosclerotic calcifications in the tortuous thoracic aorta. SOFT TISSUES AND BONES: Degenerative changes of the visualized spine. Soft tissues are unremarkable. IMPRESSION:No acute cardiopulmonary abnormalities. Signed: Jan Mclain MDReport Verified Date/Time: 05/28/2018 10:40:01 Reading Location: [address] Radiology Reading Room
--- OUTSIDE RECORDS SUMMARY | 2018-06-08 22:48 | XMS REPORT | Clinical Summary ---
:1940 Author Organization [facility] Address [address] [place] [address] Care Team Providers Name Role Phone Pcp, No Primary Care Provider Unavailable Allergies Not on File Medications Not on file Active Problems Not on file Encounters Date Type Specialty Care Team Description 05/28/2018 Hospital Encounter Floyd Ariza CVD (cardiovascular disease); MD John Atrial fibrillation, unspecified type (HCC); Coronary artery disease with angina pectoris, unspecified vessel or lesion type, unspecified whether [place] or transplanted heart (HCC); Hypertension, unspecified type 05/08/2018 Outside Orders Central Scheduling Floyd Ariza CVD ( cardiovascular disease) (Primary Dx); MD John Atrial fibrillation, unspecified type (HCC); Coronary artery disease with angina pectoris, unspecified vessel or lesion type, unspecified whether [place] or transplanted heart (HCC); Hypertension, unspecified type after 06/07/2017 Social History Tobacco Use Types Packs/Day Years Used Date Never Assessed Sex Assigned at Date Recorded Not on file Job Start Date Occupation Industry Not on file Not on file Not on file Travel History Travel Start Travel End No recent travel history available. Last Filed Vital Signs Not on file Plan of Treatment Not on file Procedures Procedure Name Priority Date/Time Associated Diagnosis Comments XR CHEST 2 VIEWS Routine 05/28/2018 10:35 AM CVD (cardiovascular Results for this CDT disease) procedure are in Atrial fibrillation, the results unspecified type (HCC) section. Coronary artery disease with angina pectoris, unspecified vessel or lesion type, unspecified whether [place] or transplanted heart (HCC) Hypertension, unspecified type after 06/07/2017 Results XR Chest 2 Views (05/28/2018 10:35 AM CDT) Narrative Performed At FINAL REPORT [facility] TECHNIQUE: Frontal and lateral views of the chest. [...] the visualized spine. Soft tissues are unremarkable. IMPRESSION: No acute cardiopulmonary abnormalities. Signed: Melissa Mclain MD Report Verified Date/Time:05/28/2018 10:40:01 Reading Location: [address] Radiology Reading Room Procedure Note Interface, External Ris In - 05/28/2018 10:42 AM CDT FINAL REPORT TECHNIQUE: Frontal and lateral views of the chest. [...] the visualized spine. Soft tissues are unremarkable. IMPRESSION: No acute cardiopulmonary abnormalities. Signed: Melissa Mclain MD Report Verified Date/Time: 05/28/2018 10:40:01 Reading Location: [address] Radiology Reading Room Performing Organization Address City/State/Zipcode Phone Number RIS after 06/07/2017 Insurance Payer Benefit Plan / Group Subscriber ID Type Phone Address MEDICARE MEDICARE A B xxxxxxxxxxx Medicare
[2018-06-08] MEDS ORDERED: HYDRALAZINE HCL 20 MG/ML VIAL ONE (23:29)
[2018-06-08 23:30] LABS: Absolute Lymphocytes (CBC) 2.9 K/uL (0.7-4.9); Absolute Monocytes 0.8 K/uL (0.1-1.3); Basophils % 0.6 % (0-1.3); Eosinophils % 2.9 % (0-4.4); Hematocrit 42.3 % (39.6-49.0); MPV 7.4 fL (7.6-11.3); Protime INR 1.22; RBC Red Blood Cell Count 4.88 M/uL (4.33-5.43)
[2018-06-08 23:53] LABS: ALT/SGPT 30 U/L (12-78); AST/SGOT 23 U/L (15-37); Alkaline Phosphatase 26 U/L (45-117); BUN Blood Urea Nitrogen 22 mg/dL (7-18); Bicarbonate 27 mmol/L (21-32); Bilirubin Direct 0.3 mg/dL (0-0.2); Bilirubin Total 1.3 mg/dL (0.2-1.0); Glucose Level 84 mg/dL (74-106); Magnesium 2.3 mg/dL (1.8-2.4); NT PRO-BNP 755 pg/mL (<450); Potassium 4.1 mmol/L (3.5-5.1); Protein, Total 7.4 g/dL (6.4-8.2); Sodium Level 141 mmol/L (136-145); Troponin (Emerg Dept Use Only) < 0.02 ng/mL (0.0-0.045)
--- NOTE | 2018-06-09 01:16 | ER ---
Nurse's Notes [facility] Name: Dameon Olivia Age: 77 yrs Sex: Male : 1940 Arrival Date: 06/08/2018 Time: 22:49 Bed 7 Private MD: Diagnosis: Hypertensive Urgency Presentation: 06/08 22:50 Presenting complaint: Patient states: that he is having dizziness and blurry vision. fc Denies any nausea, vomiting or shortness of breath. Transition of care: patient was not received from another setting of care. Onset of symptoms was June 08, 2018 at 22:20. Risk Assessment: Do you want to hurt yourself or someone else? Patient reports no desire to harm self or others. Initial Sepsis Screen: Does the patient meet any 2 criteria? No. Patient's initial sepsis screen is negative. Does the patient have a suspected source of infection? No. Patient's initial sepsis screen is negative. Care prior to arrival: None. 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 - Social history:: Smoking status: Patient/guardian denies using tobacco, Patient uses alcohol, 3 drinks a day. - Ebola Screening: : Patient negative for fever greater than or equal to 101.5 degrees Fahrenheit, and additional compatible Ebola Virus Disease symptoms Patient denies exposure to infectious person Patient denies travel to an Ebola-affected area in the 21 days before illness onset. Screenin:05 Abuse screen: Denies threats or abuse. Nutritional screening: No deficits noted. fc Tuberculosis screening: No symptoms or risk factors identified. Fall Risk None identified. Assessment: 22:50 General: Appears in no apparent distress. Behavior is anxious. Pain: Denies pain. Pain: tl1 Pain does not radiate. Pain began no c/o pain. Neuro: No deficits noted. Level of Consciousness is awake, alert, obeys commands, Oriented to person, place, time, situation. Cardiovascular: Reports lightheadedness, Denies chest pain. Respiratory: Airway is patent Trachea midline Respiratory effort is even, unlabored, Breath sounds are clear bilaterally. GI: Abdomen is non-distended, Bowel sounds present X 4 quads. Abd is soft and non tender X 4 quads. : No signs and/or symptoms were reported regarding the genitourinary system. EENT: No signs and/or symptoms were reported regarding the EENT system. 06/09 00:19 General: Appears in no apparent distress. tl1 01:27 Reassessment: Patient and/or family updated on plan of care and expected duration. Pain tl1 level reassessed. Patient is alert, oriented x 3, equal unlabored respirations, skin warm/dry/pink. Patient denies pain at this time. Patient states feeling better. Patient states symptoms have improved. Vital Signs: 06/08 22:50 BP 203 / 83; Pulse 47; Resp 18; Temp 98.2(O); Pulse Ox 100% on R/A; Weight 97.52 kg fc (R); Height 6 ft. 0 in. (182.88 cm) (R); Pain 0/10; 23:22 BP 148 / 89; Pulse 47; Resp 19; Pulse Ox 100% on R/A; tl1 06/09 00:18 BP 144 / 58; Pulse 64; Resp 17; Pulse Ox 100% ; Pain 0/10; tl1 01:32 BP 152 / 61; Pulse 56; Resp 16; Temp 98.2; Pulse Ox 100% ; Pain 0/10; tl1 06/08 22:50 Body Mass Index 29.16 (97.52 kg, 182.88 cm) ED Course: 06/08 22:49 Patient arrived in ED. tl2 22:50 Arm band placed on Patient placed in an exam room, on a stretcher. 22:56 Jake Saenz MD is Attending Physician. tw4 23:02 Triage completed. 23:02 Chris Gregory PA is PHCP. jr8 23:02 Jake Saenz MD is Attending Physician. jr8 23:05 Patient has correct armband on for positive identification. Placed in gown. Bed in low fc position. Call light in reach. monitor worker on. Pulse ox on. NIBP on. 23:05 No provider procedures requiring assistance completed. fc 23:15 Inserted saline lock: 22 gauge in right antecubital area, using aseptic technique. ar5 Blood collected. 23:21 Annamarie Montana RN is Primary Nurse. tl1 23:51 Basic Metabolic Panel Sent. tl2 23:51 CBC with Diff Sent. tl2 23:52 LFT's Sent. tl2 23:52 Magnesium Sent. tl2 23:52 NT PRO-BNP Sent. tl2 06/09 01:27 IV discontinued, intact, bleeding controlled, No redness/swelling at site. Pressure tl1 dressing applied. Patient maintains SpO2 saturation greater than 95% on room air. 01:37 XRAY Chest (1 view) In Process Unspecified. EDMS Administered Medications: 06/08 23:20 Drug: hydrALAZINE 10 mg Route: IV; Rate: calculated rate; Infused Over: 5 mins; Site: tl1 right antecubital; 23:25 Follow up: IV Status: Completed infusion tl1 Outcome: 06/09 01:15 Discharge ordered by . jr8 01:28 Discharged to home ambulatory, with family. tl1 01:28 Condition: improved 01:28 Discharge instructions given to patient, family, Instructed on discharge instructions, follow up and referral plans. Demonstrated understanding of instructions, follow-up care. 01:34 Patient left the ED. tl1 Signatures: Dispatcher [employer] EDMS Constance Clark RN RN Chris Gregory PA PA jr8 Annamarie Montana, SRIRAM RN tl1 Rosalva Rao RN RN tl2 Jake Saenz MD MD tw4 Angela Velásquez ar5 Corrections: (The following items were deleted from the chart) 01:33 00:18 BP 144 / 58; Pulse 84bpm; Resp 17bpm; Pulse Ox 100%; Pain 0/10; tl1 tl1
--- NOTE | 2018-06-09 01:16 | EDPHYS ---
Physician Documentation [facility] Name: Dameon Olivia Age: 77 yrs Sex: Male : 1940 Arrival Date: 06/08/2018 Time: 22:49 Bed 7 Private MD: ED Physician Jake Saenz HPI: 06/09 00:03 This 77 yrs old Male presents to ER via Ambulatory with complaints of jr8 Dizziness. 00:03 The patient presents with sense of spinning, vertigo. Onset: The symptoms/episode jr8 began/occurred acutely, today. Context: occurred at home, occurred while the patient was standing, just prior to the episode the patient experienced no apparent symptoms. Modifying factors: The symptoms are alleviated by holding head still, the symptoms are aggravated by movement of head. Associated signs and symptoms: The patient has no apparent associated signs or symptoms. Severity of symptoms: At their worst the symptoms were moderate in the emergency department the symptoms have resolved and did so just prior to arrival. Patient's baseline: Neuro: alert and fully oriented, Motor: no deficits, Ambulation: walks without assistance, Speech: normal. The patient has not experienced similar symptoms in the past. The patient has not recently seen a physician. 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 - Social history:: Smoking status: Patient/guardian denies using tobacco, Patient uses alcohol, 3 drinks a day. - Ebola Screening: : Patient negative for fever greater than or equal to 101.5 degrees Fahrenheit, and additional compatible Ebola Virus Disease symptoms Patient denies exposure to infectious person Patient denies travel to an Ebola-affected area in the 21 days before illness onset. ROS: 06/09 00:03 Eyes: Negative for injury, pain, redness, and discharge, ENT: Negative for injury, jr8 pain, and discharge, Neck: Negative for injury, pain, and swelling, Cardiovascular: Negative for chest pain, palpitations, and edema, Respiratory: Negative for shortness of breath, cough, wheezing, and pleuritic chest pain, Abdomen/GI: Negative for abdominal pain, nausea, vomiting, diarrhea, and constipation, Back: Negative for injury and pain, MS/Extremity: Negative for injury and deformity, Skin: Negative for injury, rash, and discoloration. Neuro: Positive for dizziness. Exam: 00:03 Eyes: Pupils equal round and reactive to light, extra-ocular motions intact. Lids and jr8 lashes normal. Conjunctiva and sclera are non-icteric and not injected. Cornea within normal limits. Periorbital areas with no swelling, redness, or edema. ENT: Nares patent. No nasal discharge, no septal abnormalities noted. Tympanic membranes are normal and external auditory canals are clear. Oropharynx with no redness, swelling, or masses, exudates, or evidence of obstruction, uvula midline. Mucous membranes moist. Neck: Trachea midline, no thyromegaly or masses palpated, and no cervical lymphadenopathy. Supple, full range of motion without nuchal rigidity, or vertebral point tenderness. No Meningismus. Cardiovascular: Sinus Bradycardia with a normal S1 and S2. No gallops, murmurs, or rubs. Normal PMI, no JVD. No pulse deficits. Respiratory: Lungs have equal breath sounds bilaterally, clear to auscultation and percussion. No rales, rhonchi or wheezes noted. No increased work of breathing, no retractions or nasal flaring. Abdomen/GI: Soft, non-tender, with normal bowel sounds. No distension or tympany. No guarding or rebound. No evidence of tenderness throughout. Back: No spinal tenderness. No costovertebral tenderness. Full range of motion. Skin: Warm, dry with normal turgor. Normal color with no rashes, no lesions, and no evidence of cellulitis. MS/ Extremity: Pulses equal, no cyanosis. Neurovascular intact. Full, normal range of motion. Neuro: Awake and alert, GCS 15, oriented to person, place, time, and situation. Cranial nerves II-XII grossly intact. Motor strength 5/5 in all extremities. Sensory grossly intact. Cerebellar exam normal. Normal gait. Vital Signs: 06/08 22:50 BP 203 / 83; Pulse 47; Resp 18; Temp 98.2(O); Pulse Ox 100% on R/A; Weight 97.52 kg fc (R); Height 6 ft. 0 in. (182.88 cm) (R); Pain 0/10; 23:22 BP 148 / 89; Pulse 47; Resp 19; Pulse Ox 100% on R/A; tl1 06/09 00:18 BP 144 / 58; Pulse 64; Resp 17; Pulse Ox 100% ; Pain 0/10; tl1 01:32 BP 152 / 61; Pulse 56; Resp 16; Temp 98.2; Pulse Ox 100% ; Pain 0/10; tl1 06/08 22:50 Body Mass Index 29.16 (97.52 kg, 182.88 cm) fc MDM: 06/08 22:57 Patient medically screened. tw4 06/09 01:13 Data reviewed: vital signs, nurses notes, lab test result(s), EKG, radiologic studies, [facility] plain films. Data interpreted: Pulse oximetry: on room air is 100 %. Interpretation: normal. Counseling: I had a detailed discussion with the patient and/or guardian regarding: the historical points, exam findings, and any diagnostic results supporting the discharge/admit diagnosis, lab results, radiology results, the need for outpatient follow up, a family practitioner, to return to the emergency department if symptoms worsen or persist or if there are any questions or concerns that arise at home. ED course: Patient continues to remain asymptomatic at this point. Able to ambulate without any problems. BP markedly better. Will send home with return precautions . 06/08 23:14 Order name: Basic Metabolic Panel [facility] 06/08 23:14 Order name: CBC with Diff [facility] 06/08 23:14 Order name: LFT's [facility] 06/08 23:14 Order name: Magnesium [facility] 06/08 23:14 Order name: NT PRO-BNP [facility] 06/08 23:14 Order name: PT-INR; Complete Time: 23:47 [facility] 06/08 23:14 Order name: Troponin (emerg Dept Use Only); Complete Time: 00:10 [facility] 06/08 23:15 Order name: Basic Metabolic Panel; Complete Time: 00:10 EDIN 06/08 23:15 Order name: CBC with Automated Diff; Complete Time: 23:47 EDMS 06/08 23:15 Order name: Liver (Hepatic) Function; Complete Time: 00:10 EDMS 06/08 23:15 Order name: Magnesium; Complete Time: 00:10 EDIN 06/08 23:15 Order name: NT PRO-BNP; Complete Time: 00:10 EDMS 06/08 23:14 Order name: XRAY Chest (1 view) [facility] 06/08 23:14 Order name: EKG; Complete Time: 23:15 [facility] 06/08 23:14 Order name: Cardiac monitoring; Complete Time: 23:19 [facility] 06/08 23:14 Order name: EKG - Nurse/Tech; Complete Time: 23:19 [facility] 06/08 23:14 Order name: IV Saline Lock; Complete Time: 23:33 [facility] 06/08 23:14 Order name: Labs collected and sent; Complete Time: 23:33 [facility] 06/08 23:14 Order name: O2 Per Protocol; Complete Time: 23:18 [facility] 06/08 23:14 Order name: O2 Sat Monitoring; Complete Time: 23:18 [facility] 06/08 23:55 Order name: EKG; Complete Time: 23:56 [facility] 06/08 23:55 Order name: Cardiac monitoring; Complete Time: 00:25 [facility] 06/08 23:55 Order name: EKG - Nurse/Tech; Complete Time: 00:25 [facility] 06/08 23:55 Order name: IV Saline Lock; Complete Time: 00:26 [facility] 06/08 23:55 Order name: Labs collected and sent; Complete Time: 00:26 [facility] 06/08 23:55 Order name: O2 Per Protocol; Complete Time: 00:42 [facility] 06/08 23:55 Order name: O2 Sat Monitoring; Complete Time: 00:42 tw4 Administered Medications: 06/08 23:20 Drug: hydrALAZINE 10 mg Route: IV; Rate: calculated rate; Infused Over: 5 mins; Site: [facility] right antecubital; 23:25 Follow up: IV Status: Completed infusion tl1 Disposition: 06/09 07:13 Co-signature as Attending Physician, Jake Saenz MD I agree with the assessment and 4 plan of care. Disposition: 06/09/18 01:15 Discharged to Home. Impression: Hypertensive Urgency. - Condition is Stable. - Discharge Instructions: Hypertension. - Medication Reconciliation Form, Thank You Letter, Antibiotic Education, Prescription Opioid Use form. - Follow up: Private Physician; When: 2 - 3 days; Reason: Recheck today's complaints, Continuance of care, Re-evaluation by your physician. - Problem is new. - Symptoms are resolved. Signatures: Dispatcher [employer] [facility] Constance Clark RN RN Chris Gregory PA PA jr8 Annamarie Montana RN RN tl1 Jake Saenz MD MD tw4 Corrections: (The following items were deleted from the chart) 00:10 06/08 23:56 BASIC METABOLIC PANEL+C.LAB.BRZ ordered. [facility] 06/09 00:10 06/08 23:56 CBC+H.LAB.BRZ ordered. [facility] 06/09 00:10 06/08 23:56 HEPATIC FUNCTION+C.LAB.BRZ ordered. [facility] 06/09 00:10 06/08 23:56 MAGNESIUM+C.LAB.BRZ ordered. [facility] 06/09 00:10 06/08 23:56 PROBNP+C.LAB.BRZ ordered. [facility] 06/09 00:10 06/08 23:56 PROTIME (+INR)+COAG.LAB.BRZ ordered. [facility] 06/09 00:10 06/08 23:56 TROPONIN (EMERG DEPT USE ONLY)+C.LAB.BRZ ordered. [facility] 06/09 01:34 06/08 23:56 Chest Single View+RAD.RAD.BRZ ordered. [facility] 06/09 01:34 01:15 06/09/2018 01:15 Discharged to Home. Impression: Hypertensive Urgency. Condition tl1 is Stable. Forms are Medication Reconciliation Form, Thank You Letter, Antibiotic Education, Prescription Opioid Use. Follow up: Private Physician; When: 2 - 3 days; Reason: Recheck today's complaints, Continuance of care, Re-evaluation by your physician. Problem is new. Symptoms are resolved. jr8
[2018-06-09 01:55] VITALS: TEMP 98.2; O2SAT 100
[2018-06-09 01:59] VITALS: BP 152/61
--- NOTE | 2018-06-09 09:44 | EKG ---
Test Date: 2018-06-08 Test Time: 22:54:35 Pencil Inspector: DAVY MEASUREMENT RESULTS: Intervals: Rate: 47 [place]: 248 QRSD: 112 QT: 454 QTc: 401 [place]: P: 51 [place]: 248 QRS: -50 T: 122 INTERPRETIVE STATEMENTS: Marked sinus bradycardia with 1st degree AV block Left anterior fascicular block Voltage criteria for left ventricular hypertrophy Cannot rule out Septal infarct, age undetermined ST & T wave abnormality, consider lateral ischemia Abnormal ECG Compared to ECG 03/16/2018 19:56:00 ST (T wave) deviation now present Incomplete right bundle-branch block no longer present T-wave abnormality no longer present Myocardial infarct finding still present Possible ischemia still present Electronically Signed On 06-09-18 09:42:53 CDT by Tej Mcadams
--- NOTE | 2018-06-09 09:50 | RAD REPORT ---
EXAM DESCRIPTION: Nirmal Single View06/09/2018 1:36 am CLINICAL HISTORY: Chest pain COMPARISON: February 2018 FINDINGS: The lungs appear clear of acute infiltrate. The heart is mildly enlarged IMPRESSION: No acute abnormalities displayed
== END 2018-06-09 01:34 | disposition home or self-care (01) ==
LOC: ER 22:46
DX: R42 Dizziness and giddiness (principal); I48.91 Unspecified atrial fibrillation; I10 Essential (primary) hypertension; K21.9 Gastro-esophageal reflux disease without esophagitis; E78.00 Pure hypercholesterolemia, unspecified; I25.2 Old myocardial infarction
CPT/HCPCS: 93005; 85025; 80048; 36415; 83735; 85610; 80076; 84484; 83880; 71045; J0360; 96374; 99285

== ENCOUNTER 2023-05-08 14:08 | Inpatient (IN) | payer OTHER ==
[2023-05-08] MEDS ORDERED: NA CHLORIDE 0.9% 500 ML ONE (14:59)
[2023-05-08] MEDS ORDERED: ASPIRIN 81 MG CHEWABLE TABLET ONE (14:59)
[2023-05-08] MEDS ORDERED: dilTIAZem HCL 25 MG/5 ML VIAL IV ONE (15:06)
[2023-05-08 15:13] LABS: Absolute Basophils 0.1 K/uL (0-0.5); Absolute Eosinophils 0.2 K/uL (0-0.5); Absolute Lymphocytes (CBC) 2.7 K/uL (0.7-4.9); Eosinophils % 1.9 % (0-4.4); Hematocrit 42.1 % (39.6-49.0); Hemoglobin 14.1 g/dL (13.6-17.9); Lymphocytes % 31.9 % (15.3-44.8); MCV 88.2 fL (80-100); Platelets 222 thou/uL (152-406); RBC Red Blood Cell Count 4.77 M/uL (4.33-5.43)
[2023-05-08 15:15] LABS: Protime INR 1.32
[2023-05-08 15:40] LABS: Albumin 3.3 g/dL (3.4-5.0); Anion Gap 10.7 mEq/L (5.0-15.0); Bilirubin Direct 0.3 mg/dL (0-0.2); Bilirubin Total 1.3 mg/dL (0.2-1.0); Globulin 3.3 g/dL (2.3-3.5); Potassium 3.7 mEq/L (3.5-5.1); Protein, Total 6.6 g/dL (6.4-8.2)
--- NOTE | 2023-05-08 15:51 | RAD REPORT ---
EXAM DESCRIPTION: Nirmal Single View05/08/2023 3:00 pm CLINICAL HISTORY: Chest pain COMPARISON: 2019 FINDINGS: The lungs appear clear of acute infiltrate. The heart is mildly enlarged. Pacemaker leads are in place. IMPRESSION: No acute abnormalities displayed
--- NOTE | 2023-05-08 16:57 | ER ---
Nurse's Notes [facility] Name: Dameon Olivia Age: 82 yrs Sex: Male : 1940 Arrival Date: 05/08/2023 Time: 14:08 Bed [id number] Private MD: Diagnosis: Chest pain, unspecified;Unspecified atrial fibrillation Presentation: 05/07 14:28 Ebola Screen: No symptoms or risks identified at this time. Initial Sepsis Screen: Does kd3 the patient meet any 2 criteria? No. Patient's initial sepsis screen is negative. Does the patient have a suspected source of infection? No. Patient's initial sepsis screen is negative. Risk Assessment: Do you want to hurt yourself or someone else? Patient reports no desire to harm self or others. Onset of symptoms is unknown. 14:28 Method Of Arrival: Wheelchair kd3 14:29 Chief complaint: Patient states: I have been having some mild chest pain at the house a kd3 couple of hours ago. I have had an ablation, a pacemaker and 2 stents in the past. I do still have A Fib. My pain today isn't nearly as bad as when i had a heart attack. I have some shortness of breath with this. 14:29 Acuity: DEYVI 3 kd3 14:31 Coronavirus screen: Vaccine status: Patient reports being unvaccinated. kd3 Triage Assessment: 14:28 General: Appears in no apparent distress. Behavior is calm, cooperative. Pain: kd3 Complains of pain in chest. Respiratory: Reports shortness of breath Onset: The symptoms/episode began/occurred gradually, the patient has mild shortness of breath. 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 - Social history:: Smoking status: unknown. Screenin:30 [facility] ED Fall Risk Assessment (Adult) History of falling in the last 3 months, aa5 including since admission No falls in past 3 months (0 pts) Confusion or Disorientation No (0 pts) Intoxicated or Sedated No (0 pts) Impaired Gait No (0 pts) Mobility Assist Device Used No (0 pt) Altered Elimination No (0 pt) Score/Fall Risk Level 0 - 2 = Low Risk Oriented to surroundings, Maintained a safe environment, Educated pt \T\ family on fall prevention, incl call for assistance when getting out of bed. Abuse screen: Denies threats or abuse. Nutritional screening: No deficits noted. Tuberculosis screening: No symptoms or risk factors identified. Assessment: 14:28 General: Appears comfortable, Behavior is calm, cooperative. Pain: Complains of pain in aa5 chest Pain currently is 0 out of 10 on a pain scale. Pain began this morning and has resolved. Neuro: Level of Consciousness is awake, alert, obeys commands, Oriented to person, place, time, situation. Cardiovascular: Denies palpitations, Heart tones S1 S2 present Rhythm is regular. Respiratory: Reports shortness of breath at rest Airway is patent Respiratory effort is even, unlabored, Breath sounds are clear bilaterally. GI: Abdomen is round non-distended, Bowel sounds present X 4 quads. Abd is soft and non tender X 4 quads. : No signs and/or symptoms were reported regarding the genitourinary system. EENT: No signs and/or symptoms were reported regarding the EENT system. Derm: Skin is pink, warm \T\ dry. Musculoskeletal: Range of motion: intact in all extremities. 15:15 Reassessment: Patient is alert, oriented x 3, equal unlabored respirations, skin aa5 warm/dry/pink. 16:00 Reassessment: Patient appears in no apparent distress at this time. Patient and/or db family updated on plan of care and expected duration. Pain level reassessed. Patient is alert, oriented x 3, equal unlabored respirations, skin warm/dry/pink. 17:00 Reassessment: Patient appears in no apparent distress at this time. Patient and/or db family updated on plan of care and expected duration. Pain level reassessed. Patient is alert, oriented x 3, equal unlabored respirations, skin warm/dry/pink. 18:09 Reassessment: FAXED AMIODARONE MEDICATION TO PHARMACY. db 18:11 Reassessment: Patient appears in no apparent distress at this time. Patient and/or db family updated on plan of care and expected duration. Pain level reassessed. Patient is alert, oriented x 3, equal unlabored respirations, skin warm/dry/pink. FAMILY IS AT BEDSIDE. 19:00 General: Appears in no apparent distress. comfortable, Behavior is calm, cooperative, km8 appropriate for age. Pain: Denies pain. Neuro: Level of Consciousness is awake, alert, obeys commands, Oriented to person, place, time, situation. Cardiovascular: Denies chest pain, palpitations, Patient's skin is warm and dry. Rhythm is atrial fibrillation with rapid ventricular response. Respiratory: Airway is patent Respiratory effort is even, unlabored, Respiratory pattern is regular, symmetrical. Derm: Skin is intact, is healthy with good turgor, Skin is dry, Skin is pink, warm \T\ dry. normal, Skin temperature is warm. Vital Signs: 14:26 Pulse 70; Resp 16; Temp 97.9(O); Pulse Ox 98% on R/A; Weight 104.33 kg; Height 6 ft. 0 kd3 in. ; Pain 2/10; 14:38 BP 107 / 59; Pulse 150; kd3 15:07 BP 113 / 77; Pulse 153; Resp 16 S; Pulse Ox 97% on R/A; aa5 15:13 BP 110 / 63; Pulse 118; Resp 16; Pulse Ox 95% on R/A; aa5 15:25 BP 114 / 63; Pulse 110; Resp 18 S; Pulse Ox 95% on R/A; aa5 16:52 BP 128 / 112; Pulse 111; Resp 16; Pulse Ox 95% on R/A; db 17:00 BP 105 / 60; Pulse 110; Pulse Ox 96% ; db 18:00 BP 118 / 45; Pulse 115; Resp 18; Pulse Ox 96% on R/A; db 14:26 Body Mass Index 31.19 (104.33 kg, 182.88 cm) kd3 14:26 Pain Scale: Adult kd3 Stew Coma Score: 19:00 Eye Response: spontaneous(4). Motor Response: obeys commands(6). Verbal Response: km8 oriented(5). Total: 15. ED Course: 14:12 Patient arrived in ED. ra3 14:17 Cb Lee PA is PHCP. cp 14:17 Jonh Ugalde MD is Attending Physician. cp 14:28 Arm band placed on right wrist. kd3 14:28 Patient has correct armband on for positive identification. Placed in gown. Bed in low aa5 position. Call light in reach. Side rails up X2. Client placed on continuous cardiac and pulse oximetry monitoring. NIBP monitoring applied. compliance monitor on. 14:31 Triage completed. kd3 14:38 EKG completed in triage. Results shown to . kd3 14:39 EKG done, by ED staff, reviewed by Cb CHINO. kd3 14:54 Initial lab(s) drawn, by me, sent to lab. Inserted saline lock: 18 gauge in right aa5 forearm, using aseptic technique. Blood collected. 14:56 Elizabeth Salazar, SRIRAM is Primary Nurse. aa5 14:56 EKG done, by ED staff, reviewed by Cb CHINO. aa5 15:01 XRAY Chest (1 view) In Process Unspecified. EDMS 15:04 Roland Flores MD is Attending Physician. cp 15:15 Report given to SRIRAM Washburn. aa5 16:55 Thom De Oliveira MD is Hospitalizing Provider. cp 19:17 No provider procedures requiring assistance completed. Patient admitted, IV remains in km8 place. 19:18 Provided Education on: admission process. [facility] 19:45 This RN called to patient's room. Pt requesting his night time medications. Pt educated cm10 that he has medications that are ordered for tonight at 2100 and that his nurse would come with his medications. 21:30 This patient requesting to speak with Charge Nurse. Pt asking when he can be discharged cm10 and what the process was to be sent home. This RN explained to patient that if he would like to leave we would notify the admitting provider and he would be leaving AMA. Pt made aware that he has a bed assigned in ICU and will be getting moved over. pt states that he would like to continue with that plan but would be leaving at 0900. Administered Medications: 15:05 Drug: Aspirin PO Chewable Tablet 324 mg PO once; 81 mg tablets x 4 Route: PO; aa5 15:37 Follow up: Response: No adverse reaction aa5 15:05 Drug: NS 0.9% IV 500 ml IV at bolus once Route: IV; Rate: bolus; Site: right forearm; aa5 16:00 Follow up: Response: No adverse reaction; IV Status: Completed infusion; IV Intake: db 500ml 15:08 Drug: Diltiazem IVP 10 mg IVP once; Over 2 minutes Route: IVP; Site: right forearm; aa5 15:15 Follow up: Response: HR decreased aa5 15:45 CANCELLED (Physician Discretion): [id number] mg IVP once; Over 2 minutes cp 18:55 Drug: amiodarone IVPB 150 mg 100 ml IVPB once over 10 mins; (mix in D5W) Volume: 100 db ml; Route: IVPB; Infused Over: 10 mins; Site: right antecubital; 19:10 Follow up: Response: No adverse reaction; IV Status: Completed infusion; IV Intake: km8 100ml 19:10 Drug: amiodarone IVPB 900 mg, D5W IV 500 ml IVPB at 1 mg/min continuous; for 6 hrs, km8 then change to 0.5 mg/min Route: IVPB; Rate: 1 mg/min; Site: right forearm; 21:36 Follow up: IV Status: Infusion continued upon admission km8 Medication: 15:36 VIS not applicable for this client. aa5 Intake: 16:00 IV: 500ml; Total: 500ml. db 19:10 IV: 100ml; Total: 600ml. km8 Outcome: 16:56 Decision to Hospitalize by Provider. cp 19:00 Admitted to ER Hold. Please see [facility] for further documentation. cm10 19:00 Condition: good 19:00 Instructed on the need for admit, 22:36 Patient left the ED. 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
--- NOTE | 2023-05-08 16:57 | EDPHYS ---
Physician Documentation [facility] Name: Dameon Olivia Age: 82 yrs Sex: Male : 1940 Arrival Date: 05/08/2023 Time: 14:08 Bed [id number] Private MD: ED Physician Roland Flores HPI: 05/07 14:35 This 82 yrs old Male presents to ER via Wheelchair with complaints of Breathing cp Difficulty. 14:35 The patient has shortness of breath with light activity. Onset: The symptoms/episode cp began/occurred today. Duration: The symptoms are continuous, and are unchanged since they started. Associated signs and symptoms: Pertinent positives: chest pain times 2 hours, Pertinent negatives: productive cough, diaphoresis, fever, syncope. 14:35 Severity of symptoms: in the emergency department the symptoms are unchanged despite cp home interventions. 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 - Social history:: Smoking status: unknown. ROS: 14:40 Constitutional: Negative for body aches, chills, fever, poor PO intake, cp 14:40 Eyes: Negative for injury, pain, redness, and discharge, cp 14:40 ENT: Negative for drainage from ear(s), ear pain, sore throat, difficulty swallowing, difficulty handling secretions, 14:40 Cardiovascular: Positive for chest pain, Negative for edema, 14:40 Respiratory: Positive for shortness of breath, on exertion. Negative for cough, wheezing, 14:40 Abdomen/GI: Positive for nausea, Negative for abdominal pain, vomiting, diarrhea, constipation, 14:40 Back: Negative for pain at rest, pain with movement, 14:40 Neuro: Negative for dizziness, headache, syncope, near syncope, weakness, 14:40 All other systems are negative, Exam: 14:45 Constitutional: The patient appears in no acute distress, alert, awake, cp non-diaphoretic, non-toxic, well developed, well nourished, 14:45 Head/Face: Normocephalic, atraumatic. cp 14:45 Eyes: Periorbital structures: appear normal, Conjunctiva: normal, no exudate, no injection, Sclera: no appreciated abnormality, Lids and lashes: appear normal, bilaterally, 14:45 ENT: External ear(s): are unremarkable, Nose: is normal, Mouth: Lips: moist, Oral mucosa: pink and intact, moist, Posterior pharynx: Airway: no evidence of obstruction, patent, 14:45 Neck: ROM/movement: is normal, is supple, without pain, no range of motions limitations, 14:45 Chest/axilla: Inspection: normal, Palpation: is normal, no crepitus, no tenderness, 14:45 Cardiovascular: Rate: tachycardic, Rhythm: regular, Edema: is not appreciated, JVD: is cp not appreciated, 14:45 Respiratory: the patient does not display signs of respiratory distress, Respirations: cp normal, no use of accessory muscles, no retractions, labored breathing, is not present, Breath sounds: are clear throughout, no decreased breath sounds, no stridor, no wheezing, 14:45 Abdomen/GI: Inspection: abdomen appears normal, Palpation: abdomen is soft and non-tender, in all quadrants, 14:45 Back: pain, is absent, ROM is normal, 14:45 Neuro: Orientation: to person, place \T\ time. Mentation: is normal, Cerebellar function: is grossly normal, Motor: moves all fours, strength is normal, Sensation: is normal, Vital Signs: 14:26 Pulse 70; Resp 16; Temp 97.9(O); Pulse Ox 98% on R/A; Weight 104.33 kg; Height 6 ft. 0 kd3 in. ; Pain 2/10; 14:38 BP 107 / 59; Pulse 150; kd3 15:07 BP 113 / 77; Pulse 153; Resp 16 S; Pulse Ox 97% on R/A; aa5 15:13 BP 110 / 63; Pulse 118; Resp 16; Pulse Ox 95% on R/A; aa5 15:25 BP 114 / 63; Pulse 110; Resp 18 S; Pulse Ox 95% on R/A; aa5 16:52 BP 128 / 112; Pulse 111; Resp 16; Pulse Ox 95% on R/A; db 17:00 BP 105 / 60; Pulse 110; Pulse Ox 96% ; db 18:00 BP 118 / 45; Pulse 115; Resp 18; Pulse Ox 96% on R/A; db 14:26 Body Mass Index 31.19 (104.33 kg, 182.88 cm) kd3 14:26 Pain Scale: Adult kd3 [place] Coma Score: 19:00 Eye Response: spontaneous(4). Motor Response: obeys commands(6). Verbal Response: km8 oriented(5). Total: 15. MDM: 14:32 Patient medically screened. 15:00 Differential diagnosis: pneumonia, pulmonary edema, Pulmonary Embolism Sepsis Unstable cp Angina arrhythmia, acute DC. 17:00 Data reviewed: vital signs, nurses notes, lab test result(s), EKG, radiologic studies, cp plain films, I have discussed the patient's presentation/case with the attending Emergency Department Physician; and as a result, I will admit patient. 17:00 Management of patient was discussed with the following: Primary Care Provider: DR De Oliveira will admit after discussion and requests cardiology consultation to discuss starting Amiodarone. 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 05/07 14:33 Order name: Basic Metabolic Panel; Complete Time: 16:07 05/07 15:43 Interpretation: Normal except: GLUC 159; BUN 22; CRE 1.73; GFR 39. 05/07 14:33 Order name: CBC with Diff; Complete Time: 15:43 05/07 16:08 Interpretation: Reviewed. 05/07 14:33 Order name: LFT's; Complete Time: 16:07 05/07 16:07 Interpretation: Normal except: ALK 25; BILIT 1.3; IBILI, CALC 1.0; BILID 0.3; ALB 3.3; cp A/G 1.0. 05/07 14:33 Order name: Magnesium; Complete Time: 16:07 cp 05/07 14:33 Order name: NT PRO-BNP; Complete Time: 16:07 cp 05/07 16:07 Interpretation: Reviewed. cp 05/07 14:33 Order name: PT-INR; Complete Time: 15:43 cp 05/07 14:33 Order name: Troponin HS; Complete Time: 16:07 cp 05/07 16:07 Interpretation: Reviewed. cp 05/07 18:51 Order name: Basic Metabolic Panel EDMS 05/07 18:51 Order name: Basic Metabolic Panel EDMS 05/07 18:51 Order name: CBC with Automated Diff EDMS 05/07 18:51 Order name: CBC with Automated Diff EDMS 05/07 18:51 Order name: Troponin High Sensitivity EDMS 05/07 18:51 Order name: Troponin High Sensitivity EDDC 05/07 18:51 Order name: Troponin High Sensitivity EDDC 05/07 18:51 Order name: Troponin High Sensitivity EDDC 05/07 14:33 Order name: XRAY Chest (1 view); Complete Time: 16:07 cp 05/07 14:33 Order name: EKG; Complete Time: 14:33 cp 05/07 18:46 Order name: CONS Physician Consult EDDC 05/07 18:51 Order name: EKG Electrocardiogram EDDC 05/07 18:51 Order name: EKG Electrocardiogram EDDC 05/07 18:51 Order name: EKG Electrocardiogram EDDC 05/07 18:51 Order name: EKG Electrocardiogram EDDC 05/07 14:33 Order name: Cardiac monitoring; Complete Time: 14:43 cp 05/07 14:33 Order name: EKG - Nurse/Tech; Complete Time: 14:38 cp 05/07 14:33 Order name: IV Saline Lock; Complete Time: 14:56 cp 05/07 14:33 Order name: Labs collected and sent; Complete Time: 14:56 cp 05/07 14:33 Order name: O2 Per Protocol; Complete Time: 14:43 cp 05/07 14:33 Order name: O2 Sat Monitoring; Complete Time: 14:43 cp 05/07 14:56 Order name: EKG - Nurse/Tech; Complete Time: 14:56 aa5 05/07 17:55 Order name: Misc. Order: stop Multaq; Complete Time: 19:16 cp Administered Medications: 15:05 Drug: Aspirin PO Chewable Tablet 324 mg PO once; 81 mg tablets x 4 Route: PO; aa5 15:37 Follow up: Response: No adverse reaction aa5 15:05 Drug: NS 0.9% IV 500 ml IV at bolus once Route: IV; Rate: bolus; Site: right forearm; aa5 16:00 Follow up: Response: No adverse reaction; IV Status: Completed infusion; IV Intake: db 500ml 15:08 Drug: Diltiazem IVP 10 mg IVP once; Over 2 minutes Route: IVP; Site: right forearm; aa5 15:15 Follow up: Response: HR decreased aa5 15:45 CANCELLED (Physician Discretion): [id number] mg IVP once; Over 2 minutes cp 18:55 Drug: amiodarone IVPB 150 mg 100 ml IVPB once over 10 mins; (mix in D5W) Volume: 100 db ml; Route: IVPB; Infused Over: 10 mins; Site: right antecubital; 19:10 Follow up: Response: No adverse reaction; IV Status: Completed infusion; IV Intake: km8 100ml 19:10 Drug: amiodarone IVPB 900 mg, D5W IV 500 ml IVPB at 1 mg/min continuous; for 6 hrs, km8 then change to 0.5 mg/min Route: IVPB; Rate: 1 mg/min; Site: right forearm; 21:36 Follow up: IV Status: Infusion continued upon admission km8 Disposition Summary: 05/08/23 16:56 Hospitalization Ordered Notes: Hospitalization Status: Inpatient Admission cp Provider: Thom De Oliveira cp Condition: Stable cp Problem: new cp Symptoms: have improved cp Bed/Room Type: Standard cp Location: Intensive Care Unit(05/08/23 21:00) cm10 Room Assignment: 1-(05/08/23 21:00) 10 Diagnosis - Chest pain, unspecified cp - Unspecified atrial fibrillation cp Forms: - Medication Reconciliation Form cp - SBAR form cp - Leadership Thank You Letter cp Addendum: 05/10/2023 08:00 I was immediately available for consultation during this patient's visit. I did not e c2 personally see the patient or discuss the patient with the MANUEL. . 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 cp cp 18:06 16:56 Telemetry/MedSurg (Inpatient) cp cp 18:06 16:56 cp cp 18:53 18:06 Intensive Care Unit cp kb3 18:53 18:06 cp kb3 21:00 18:53 [facility] ER HOLD kb3 cm10 21:00 18:53 ERHOLD- kb3 cm10
[2023-05-08] MEDS: AMIODARONE HCL 150 MG in D5W 100 ML IV STA (18:11)
[2023-05-08] MEDS ORDERED: ONDANSETRON 4 MG/2 ML VIAL IV PRN (18:44)
[2023-05-08] MEDS: AMIODARONE HCL 900 MG in Dextrose 5%-Water 482 ML IV SCH (19:10)
[2023-05-08 20:49] VITALS: O2SAT 96
[2023-05-08] MEDS: DABIGATRAN 75 MG CAP PO SCH (20:59)
--- NOTE | 2023-05-08 21:46 | P.HP ---
Patient History Date of Service: 05/08/23 Reason for admission: PALPITATIONS History of Present Illness: MR. REHMAN HAS SUDDEN PALPITATIONS WITH RAPID A FIB. HE HAS HAD HISTORY OF A FIB. HE IS ON MULTAQ AND IT DID NOT WORK. HE IS ALREADY ON PRADAXA. Allergies No Known Allergies Allergy (Verified 03/16/18 02:14) Home medications list reviewed: Yes Home Medications: Atorvastatin Calcium 40 mg PO BEDTIME 03/16/18 Dabigatran Etexilate Mesylate [Pradaxa*] 150 mg PO BID 03/16/18 Losartan Potassium 100 mg PO DAILY 03/16/18 Pantoprazole [Protonix Tab*] 40 mg PO DAILY 03/16/18 Sotalol HCl [Betapace*] 80 mg PO BID 6AM 6PM #60 tab 03/17/18 - Past Medical/Surgical History Diabetic: No -: HTN -: CAD -: Afib -: High Cholesterol -: heart stents x2 -: right knee replacement -: Cardioversion - Family History Sister -: Diabetes Father -: Lung disease, Cancer Notes: COPD Mother -: Cancer - Social History Alcohol use: Yes CD- Drugs: No Caffeine use: Yes Review of Systems 10-point ROS is otherwise unremarkable Physical Examination - Physical Exam General: Oriented x3, Acute distress HEENT: Atraumatic, PERRLA, Mucous membr. moist/pink, EOMI, Sclerae nonicteric Neck: Supple, 2+ carotid pulse no bruit, No LAD, Without JVD or thyroid abnormality Respiratory: Clear to auscultation bilaterally, Normal air movement Cardiovascular: Irregular heart rate/rhythm Gastrointestinal: Normal bowel sounds, No tenderness Musculoskeletal: No tenderness Integumentary: No rashes Neurological: Normal gait, Normal speech, Normal strength at 5/5 x4 extr, Normal tone, Normal affect Lymphatics: No axilla or inguinal lymphadenopathy - Studies Laboratory Data (last 24 hrs) 05/08/23 05/08/23 05/08/23 14:54 14:54 14:54 WBC 8.60 Hgb 14.1 Hct 42.1 Plt Count 222 PT 14.4 H INR 1.32 Sodium 138 Potassium 3.7 BUN 22 H Creatinine 1.73 H Glucose 159 H Magnesium 2.0 Total Bilirubin 1.3 H AST 20 ALT 26 Alkaline Phosphatase 25 L Assessment and Plan - Problems (Diagnosis) (1) Atrial fibrillation with RVR Onset Date: 04/05/17 Current Visit: No Status: Acute Plan: AMIODARONE DRIP CONTINUE PRADAXA MAY GO HOME IN 48 HOURS IF ALL STABLE. - Advance Directives Does patient have a Living Will: No Does patient have a Durable POA for Healthcare: No
[2023-05-08 21:50] VITALS: BMI 30.9
[2023-05-09 04:44] LABS: Absolute Basophils 0.1 K/uL (0-0.5); Absolute Eosinophils 0.2 K/uL (0-0.5); Basophils % 1.2 % (0-1.3); Eosinophils % 2.9 % (0-4.4); Hematocrit 38.9 % (39.6-49.0); Lymphocytes % 37.4 % (15.3-44.8); Platelets 211 thou/uL (152-406); RBC Red Blood Cell Count 4.38 M/uL (4.33-5.43)
[2023-05-09 04:59] LABS: Anion Gap 7.5 mEq/L (5.0-15.0); Potassium 4.5 mEq/L (3.5-5.1)
[2023-05-09 06:29] VITALS: BP 113/47
[2023-05-09 07:16] VITALS: TEMP 97.6
[2023-05-09] MEDS ORDERED: ASPIRIN EC 81 MG TAB PO ONE (07:44)
[2023-05-09] MEDS: ASPIRIN EC 81 MG TAB PO SCH (07:46)
--- NOTE | 2023-05-09 12:23 | P.DS ---
Admission Date: 05/08/23 Discharge Date: 05/09/23 Disposition: AMA-LEFT AGAINST MEDICAL ADVIC Reason for Admission: PALPITATIONS - Problems (1) Atrial fibrillation with RVR Onset Date: 04/05/17 Status: Acute Brief History of Present Illness: MR. REHMAN HAS SUDDEN PALPITATIONS WITH RAPID A FIB. HE HAS HAD HISTORY OF A FIB. HE IS ON MULTAQ AND IT DID NOT WORK. HE IS ALREADY ON PRADAXA. Hospital Course: JENISE REHMAN COMES WITH RAPID HEART RATE. HAS A FIB THAT IS NOT CONTROLLED ON MULTAQ. WE CHANGED TO AMIODARONE, IT WORKED. HE SIGNED AGAINST MEDICAL ADVISE TO GO TO HIS [employer]. I TOLD HIM THAT I WILL CALL IN AMIODARONE FOR A MONTH UNTIL HIS [employer] CAN TAKE OVER. STOP MULTAQ. CONTINUE PRADAXA. HE IS STABLE. Vital Signs/Physical Exam: Temp Pulse Resp BP Pulse Ox 97.6 F 72 18 113/47 L 97 05/09/23 07:00 05/09/23 07:00 05/09/23 07:00 05/09/23 07:00 05/09/23 07:00 Laboratory Data at Discharge: WBC 8.10 thou/uL (4.3-10.9) 05/09/23 04:20 Hgb 13.0 g/dL (13.6-17.9) L 05/09/23 04:20 Hct 38.9 % (39.6-49.0) L 05/09/23 04:20 Plt Count 211 thou/uL (152-406) 05/09/23 04:20 PT 14.4 SECONDS (9.5-12.5) H 05/08/23 14:54 INR 1.32 05/08/23 14:54 Sodium 141 mEq/L (136-145) 05/09/23 04:20 Potassium 4.5 mEq/L (3.5-5.1) D 05/09/23 04:20 BUN 26 mg/dL (7-18) H 05/09/23 04:20 Creatinine 1.65 mg/dL (0.70-1.30) H 05/09/23 04:20 Glucose 108 mg/dL (74-106) H 05/09/23 04:20 Magnesium 2.0 mg/dL (1.6-2.4) 05/08/23 14:54 Total Bilirubin 1.3 mg/dL (0.2-1.0) H 05/08/23 14:54 AST 20 U/L (15-37) 05/08/23 14:54 ALT 26 U/L (16-61) 05/08/23 14:54 Alkaline Phosphatase 25 U/L (45-117) L 05/08/23 14:54 Home Medications: Atorvastatin Calcium [Lipitor] 80 mg PO BEDTIME 05/08/23 Dabigatran Etexilate Mesylate [Pradaxa] 150 mg PO BID 05/08/23 Dronedarone [Multaq] 200 mg PO BID 05/08/23 Losartan Potassium 150 mg PO DAILY 05/08/23 Tamsulosin [Flomax] 0.4 mg PO DAILY 05/08/23 Followup: Thom De Oliveira MD [Primary Care Provider] -
== END 2023-05-09 08:30 | disposition left against medical advice (07) | DRG 310 ==
LOC: ER 14:08 → ERHOLD 18:42 → 3RD-ICU 21:13
PROVIDERS: ADMIT Internal Medicine; ATTEND Internal Medicine
DX: I48.91 Unspecified atrial fibrillation (principal); I10 Essential (primary) hypertension; E78.00 Pure hypercholesterolemia, unspecified; K21.9 Gastro-esophageal reflux disease without esophagitis; I25.2 Old myocardial infarction; I25.10 Atherosclerotic heart disease of native coronary artery without angina pectoris; Z95.5 Presence of coronary angioplasty implant and graft; Z95.0 Presence of cardiac pacemaker; Z53.29 Procedure and treatment not carried out because of patient's decision for other reasons; Z79.899 Other long term (current) drug therapy; Z96.651 Presence of right artificial knee joint
CPT/HCPCS: 36415; 71045; 80048; 80076; 83735; 83880; 84484; 85025; 85610; 99285; J0282; J7040; J7060